=== PATIENT | female | born 1965 | race Caucasian/White ===

== ENCOUNTER 2017-04-27 08:04 | Outpatient (CLI) | payer BC ==
[2017-04-27] MEDS ORDERED: Iopamidol 370 76% 100 ML VIAL ONE (11:55)
== END 2017-04-27 08:05 | disposition home or self-care (01) ==
LOC: BICCT 08:04
PROVIDERS: ATTEND Internal Medicine Gastroenterology
DX: R63.4 Abnormal weight loss (principal); K52.9 Noninfective gastroenteritis and colitis, unspecified; R10.13 Epigastric pain; Z90.49 Acquired absence of other specified parts of digestive tract; Z90.710 Acquired absence of both cervix and uterus; Z93.6 Other artificial openings of urinary tract status
CPT/HCPCS: 71046; 74177

== ENCOUNTER 2017-05-21 20:50 | Emergency (ER) | payer BC, SELFPAY ==
[2017-05-21 21:23] LABS: #Basophils 0.1 thou/uL (0.0-0.2); #Lymphocytes 3.2 thou/uL (1.20-3.40); #Monocytes 0.6 thou/uL (0.11-0.59); #Neutrophils 7.7 thou/uL (1.40-6.50); %Basophils 0.6 % (0.0-1.0); %Eosinophils 0.3 % (0.0-10.0); %Lymphocytes 27.3 % (21.0-51.0); %Monocytes 5.3 % (0.0-10.0); %Neutrophils 66.4 % (42.0-75.0); Mean Corpuscular Hemoglobin 29.5 pg (27.0-31.0); Mean Corpuscular Volume 89.5 fl (81.0-99.0); Mean Platelet Volume 7.2 fL (7.4-10.4); Platelet Count 393 thou/uL (130-400); RBC Distribution Width 11.9 % (11.5-14.5); Red Blood Cell (RBC) Count 4.75 mill/uL (4.20-5.40); White Blood Cell (WBC) Count 11.6 thou/uL (4.8-10.8)
--- NOTE | 2017-05-21 21:39 | RAD ---
SINGLE VIEW OF THE CHEST: Comparison: 07-27-13 History: Abdominal pain since 6:00 this morning. History of abdominal obstructions. Difficult bowel m ovement this morning. FINDINGS: Single view of the chest shows a normal sized cardiomediastinal silhouette. There is no evidence of c onsolidation, mass, or pleural effusion. The bones are unremarkable. IMPRESSION: No evidence of acute cardiopulmonary disease. POS: [facility]
[2017-05-21 21:43] LABS: ALT (SGPT) 16 U/L (8-55); AST (SGOT) 19 U/L (5-34); Albumin 4.7 g/dL (3.5-5.0); Alkaline Phosphatase 68 U/L (40-150); Anion Gap 17 mmol/L (10-20); BUN (Urea Nitrogen) 17 mg/dL (9.8-20.1); Bilirubin, Total 0.6 mg/dL (0.2-1.2); Calc. Creatinine Clearance 0 mL/min (70-130); Calcium 10.7 mg/dL (7.8-10.44); Carbon Dioxide 21 mmol/L (22-29); Chloride 104 mmol/L (98-107); Estimated GFR-MDRD 45; Globulin 3.9 g/dL (2.4-3.5); Glucose 85 mg/dL (70-105); Potassium 3.9 mmol/L (3.5-5.1); Protein, Total 8.6 g/dL (6.0-8.3); Sodium 138 mmol/L (136-145)
[2017-05-21] MEDS ORDERED: Fentanyl 100 MCG/2 ML VIAL ONE ×2 (21:47→23:42)
[2017-05-21] MEDS ORDERED: Ondansetron HCl/PF 4 MG/2 ML Vial ONE (21:47)
--- NOTE | 2017-05-21 22:11 | CT ---
CT OF THE ABDOMEN AND PELVIS WITHOUT CONTRAST: Comparison: 01-28-16 History: Abdominal pain since 6:00 this morning. History of bowel obstruction. Technique: Multiple contiguous axial images were obtained in a CT of the abdomen and pelvis without c ontrast. Coronal reformats were performed. FINDINGS: The patient is status post cholecystectomy. There is an ostomy in the right lower quadrant of the abd omen. There are multiple anastomotic benjamin lines within the bowel. The large and small bowel are no rmal in caliber without evidence of obstruction. The patient is status post hysterectomy. The liver, kidneys, adrenal glands, spleen, and pancreas are unremarkable although evaluation is limited without IV contrast. No free air, free fluid, or strandi ng changes are seen in the abdomen or pelvis. Atherosclerotic calcifications are seen in the aorta. N o abdominal or pelvic lymphadenopathy are seen. Degenerative changes are seen in the spine. Visualized inferior thorax is unremarkable. IMPRESSION: No evidence of acute intraabdominal/pelvic abnormality. POS: [facility]
--- NOTE | 2017-06-24 15:03 | EKG ---
Test Reason : Blood Pressure : / mmHG Vent. Rate : 045 BPM Atrial Rate : 045 BPM P-R Int : 116 ms QRS Dur : 090 ms QT Int : 508 ms P-R-T Axes : 071 059 050 degrees QTc Int : 439 ms Sinus bradycardia Abnormal ECG Confirmed by ALYSSIA CARTER ([id number]), publications editor ANDERSON FRANCO ([id number]) on 06/24/2017 3:02:26 PM Referred By: EMMA Confirmed By:ALYSSIA CARTER
== END 2017-05-22 00:10 | disposition home or self-care (01) ==
LOC: ERS 20:50
DX: R10.9 Unspecified abdominal pain (principal); E03.9 Hypothyroidism, unspecified; F32.9 Major depressive disorder, single episode, unspecified; Z85.41 Personal history of malignant neoplasm of cervix uteri; Z86.73 Personal history of transient ischemic attack (TIA), and cerebral infarction without residual deficits; Z87.891 Personal history of nicotine dependence
CPT/HCPCS: 71045; 74176; 80053; 83605; 85025; 93005; 96361; 96374; 96375; 96376; J2405; J3010

== ENCOUNTER 2017-05-23 09:03 | Inpatient (IN) | payer BC, SELFPAY ==
[2017-05-23] MEDS ORDERED: Ondansetron HCl/PF 4 MG/2 ML Vial ONE (10:52)
[2017-05-23 11:00] LABS: #Basophils 0.1 thou/uL (0.0-0.2); #Lymphocytes 2.1 thou/uL (1.20-3.40); #Neutrophils 9.9 thou/uL (1.40-6.50); %Basophils 0.4 % (0.0-1.0); %Eosinophils 0.3 % (0.0-10.0); %Lymphocytes 16.1 % (21.0-51.0); %Monocytes 7.8 % (0.0-10.0); %Neutrophils 75.3 % (42.0-75.0); Hemoglobin 16.2 g/dL (12.0-16.0); Mean Corpuscular HGB CONC 32.7 g/dL (32.0-36.0); Mean Corpuscular Hemoglobin 29.4 pg (27.0-31.0); Mean Corpuscular Volume 89.8 fl (81.0-99.0); Mean Platelet Volume 7.1 fL (7.4-10.4); Platelet Count 367 thou/uL (130-400); RBC Distribution Width 11.7 % (11.5-14.5); Red Blood Cell (RBC) Count 5.51 mill/uL (4.20-5.40); White Blood Cell (WBC) Count 13.1 thou/uL (4.8-10.8)
[2017-05-23] MEDS ORDERED: Furosemide 40 MG/4 ML VIAL ONE (11:11)
[2017-05-23 11:17] LABS: ALT (SGPT) 13 U/L (8-55); AST (SGOT) 18 U/L (5-34); Albumin 4.3 g/dL (3.5-5.0); Alkaline Phosphatase 73 U/L (40-150); Anion Gap 18 mmol/L (10-20); BUN (Urea Nitrogen) 14 mg/dL (9.8-20.1); Bilirubin, Total 1.3 mg/dL (0.2-1.2); Calc. Creatinine Clearance 0 mL/min (70-130); Calcium 10.3 mg/dL (7.8-10.44); Carbon Dioxide 19 mmol/L (22-29); Chloride 106 mmol/L (98-107); Estimated GFR-MDRD 46; Globulin 3.7 g/dL (2.4-3.5); Glucose 84 mg/dL (70-105); Lipase 23 U/L (8-78); Potassium 3.8 mmol/L (3.5-5.1); Sodium 139 mmol/L (136-145)
[2017-05-23 11:34] LABS: Bilirubin Small (Negative); Blood, Urine Negative (Negative); Clarity CLOUDY (Clear); Glucose, Urine (Dipstick) Negative (Negative); Leukocyte Moderate (Negative); Nitrite Negative (Negative); Protein, Urine (Dipstick) 30 mg/dL (Neg-Trace); Specific Gravity, Urine 1.014 (1.002-1.036); Urobilinogen 0.2 mg/dL (0.2-1.0); pH, Urine 7.5 (5.0-9.0)
--- NOTE | 2017-05-23 11:46 | CT ---
ABDOMEN AND PELVIS CT SCAN WITH IV CONTRAST: HISTORY: A 51-year-old female with abdominal pain. COMPARISON: 05/21/2017 FINDINGS: The lung bases are clear. Status post cholecystectomy. The visualized liver, pancreas, spleen, and adrenal glands are unremarkable. There is a right anterior ureteroileostomy. Moderate hydronephrosi s of the right kidney has developed since the prior study. No evidence for left renal hydronephrosis . There are very numerous small bowel benjamin and sutures. Previous right hemicolectomy with ileal transverse colon anastomotic. Abnormally dilated small bowel loops with some bowel wall thickening a nd what is probably some degree of enhancement, nonspecific, but raising concern for the possibility of nonspecific ileitis. The remaining colon appears unremarkable. Status post hysterectomy. No richa dence for abscess. Possible very small amount of free fluid adjacent to the right lobe of the liver. IMPRESSION: 1. Interval development of fairly marked dilatation of almost the entire small bowel, since the prio r study of 05/21/2017, with some small bowel wall thickening and what appears to be some heterogeneou s small bowel enhancement, nonspecific, but certainly raising concern for diffuse nonspecific enterit is. 2. Interval development of right-sided moderate hydronephrosis since the prior study, in association with a right-sided ureteroileostomy. 3. Status post right hemicolectomy with what appears to be an ileal transverse colon anastomosis. 4. No significant colonic dilatation, although there are some air-fluid levels within the transverse and left colon. 5. No evidence for abscess. 6. No evidence for a focal high grade small bowel obstruction. POS: [facility]
[2017-05-23 11:48] LABS: Bacteria/HPF 4+ HPF (None Seen); Squamous Epithelial 0-3 HPF (0-3)
[2017-05-23 11:50] LABS: Hyaline Casts/LPF >50 HYALINE CAST LPF (0-3 Hyaline); Pathc Cast-AUWi Flag 13.68 (0-2.49)
[2017-05-23 11:58] LABS: Manual Microscopic Reviewed? No Path Casts Seen; RBC/HPF 0-3 HPF (0-3)
[2017-05-23] MEDS ORDERED: Cefepime 2 GM, Syringe 2.5 ML in Sterile Water 10 ML SLOW IVP SCH (13:00)
[2017-05-23 13:37] LABS: PTT 24.7 SEC (22.9-36.1)
[2017-05-23 13:38] LABS: INR-International Normal Ratio 1.7; Prothrombin Time 20.2 SEC (12.0-14.7)
[2017-05-23] MEDS ORDERED: ISOVUE-370 76%-LOCM 1 ML ONE (14:27)
[2017-05-23] MEDS ORDERED: Ondansetron HCl/PF 4 MG/2 ML Vial IVP PRN (14:49)
[2017-05-23] MEDS ORDERED: Ondansetron ODT 4 MG TAB SL PRN (14:49)
[2017-05-23] MEDS ORDERED: Acetaminophen 325 MG TAB PO PRN ×2 (14:49→15:00)
[2017-05-23] MEDS ORDERED: Sodium Chloride 0.9% 1,000 ML IV SCH (14:49)
--- NOTE | 2017-05-23 15:01 | PDOC.EVN ---
Event Note - Event Note Event Note: [id number] Abdominal pain, nausea and vomiting Hypothyroidism Enteritis Hypothyroidism plan: see orders
[2017-05-23] MEDS ORDERED: HYDROcodone/Acetaminophen 5/325 mg Tablet PO PRN (15:02)
[2017-05-23] MEDS ORDERED: Warfarin Sodium 10 MG TAB PO SCH (15:15)
[2017-05-23] MEDS: Sodium Chloride 0.9% 1,000 ML IV SCH (15:46)
[2017-05-23 18:11] VITALS: BMI 24.1
[2017-05-23] MEDS: Citalopram 20 MG TAB PO SCH (19:57)
[2017-05-23] MEDS: Famotidine/PF 20 mg/2ml Vial SLOW IVP SCH (19:58)
--- NOTE | 2017-05-23 20:36 | RAD ---
SUPINE ABDOMEN: 05/23/17 HISTORY: Assess NG tube placement. FINDINGS/IMPRESSION: NG tube tip distally on the EG junction overlying the upper gastric fundal region in the left upper q uadrant. Bowel gas pattern is nonspecific with scattered small and large bowel gas noted. Post cholecystectomy clips are noted. There are also clips overlying the pelvis. POS: [facility]
[2017-05-23] MEDS ORDERED: FLU VACC QS2017-18 36 mo. & older 0.5 ML SYRINGE IM ONE (21:00)
--- NOTE | 2017-05-23 22:15 | RAD ---
SUPINE ABDOMEN: 05/23/17 HISTORY: Assess NG tube. FINDINGS/IMPRESSION: NG tube passes through the EG junction with the tip coiled in the upper gastric fundal region. There are gas filled dilated loops of small bowel. There is opacification of a dilated right collecting system. This right hydronephrosis was described on CT performed earlier today. Small bowel dilatation was also described on that study. POS: [facility]
[2017-05-23] MEDS: Cefepime 2 GM, Syringe 2.5 ML in Sterile Water 10 ML SLOW IVP SCH (22:28)
--- NOTE | 2017-05-23 22:28 | RAD ---
SUPINE ABDOMEN: 05/23/17 HISTORY: Assess NG tube placement. FINDINGS/IMPRESSION: NG tube has been advanced. The tip now overlies region of the gastric antrum. Gas filled dilated loops of small bowel again noted. Right hydronephrosis again noted with contrast i n the right collecting structures. No interval change from the earlier film. POS: [facility]
[2017-05-23] MEDS: metroNIDAZOLE 500 MG in Premix Bag 1 BAG IVPB SCH (22:29)
--- NOTE | 2017-05-23 23:00 | CON ---
DATE OF CONSULTATION: 05/23/2017 REASON FOR CONSULTATION: Abdominal pain, nausea and vomiting, and abnormal GI imaging. CONSULTING PHYSICIAN: Dr. Samir Castillo. HISTORY OF PRESENT ILLNESS: The patient is a 51-year-old female with past medical history of cervica l cancer, status post surgical resection and extensive radiation resulting in abdominal adhesions, wh ich then led to colonic resection with bowel obstruction with anastomotic leak and fistula formation that resulted in a right hemicolectomy. There are multiple bowel resections, recurrent thrombosis an d pulmonary embolus, on chronic anticoagulation, CVA, urosepsis, recurrent Clostridium difficile and salmonella infection, and bladder reconstruction with ileal conduit presenting with complaints of izabella sea, vomiting, and abdominal pain. She states that for the last few months she has been having recur rent left lower quadrant abdominal pain characterized as sharp/stabbing in nature, severity of 7-10/1 0, nonradiating, but worse with movement, better with inactivity. More recently, she said that she h ad acute worsening of this abdominal pain when she ate an dish that she was unfamiliar with wo rsening of her abdominal pain within 30 minutes after ingestion. She also endorses a diarrhea episod e x1 yesterday that was nonbloody, for which she took Imodium and has not had a subsequent bowel move ment since. She also has been taking fiber gummies in an attempt to help control this abdominal pain that has been controlled on either VSL #3 or Align probiotics in the past in addition to other treat ment modalities. Upon questioning the patient, she states that the pain is very similar to when she has had bowel obstruction in the past that has required NG tube placement for decompression as well a s small bowel follow-through for determination of etiology. In any case, worsening of the above symp toms prompted for admission to [facility] for evaluation. Upon evaluation in the ER, she had a CT scan of her abdomen, which showed significant dilation of the small bowel of up to 3-3.5 cm per my r ead. Currently she does endorse mild nausea, but no episodes of emesis since admission. She denies any further episodes of diarrhea since taking the Imodium yesterday, but she continues to have the a bdominal pain, which is unchanged in location, but has increased in severity like I said above within the last few days. Currently, denies any fevers, chills, melena, hematochezia, odynophagia, or dysp hagia. REVIEW OF SYSTEMS: A 10-category review of systems was obtained with all responses negative except f or the pertinent positives as listed in the HPI. PAST MEDICAL HISTORY: As per HPI. PAST SURGICAL HISTORY: Right hemicolectomy with revision due to anastomotic leak and fistula formati on, ileal conduit surgery, high-grade bowel obstruction, status post adhesiolysis, ureteral stent artemio cement. Ileal conduit surgery. FAMILY HISTORY: Denies any GI malignancies. SOCIAL HISTORY: Denies any tobacco, alcohol, or illicit drug use. OUTPATIENT MEDICATIONS: Reviewed. ALLERGIES: LEVAQUIN and MORPHINE. PHYSICAL EXAMINATION: VITAL SIGNS: Temperature of 98.9, pulse 62, blood pressure 131/76, respiratory rate 16, satting 97% on room air. GENERAL: The patient is lying in bed comfortably, in no acute distress, alert and oriented x4. NECK: Supple. No JVD noted. CARDIOVASCULAR: Regular rate and rhythm with no discernible murmurs, gallops, or rubs. RESPIRATORY: Clear to auscultation bilaterally with no discernible wheezes or rales. ABDOMEN: Hypoactive bowel sounds with possible high-pitched character at the area of the umbilicus. Nondistended. Tenderness to palpation in the right upper quadrant and right lower quadrant. No jeff ound or guarding noted. EXTREMITIES: No cyanosis, clubbing, or edema. LABORATORY DATA: CBC with a white blood cell count of 13.1, hemoglobin 16.2, hematocrit 49.4, platel ets 367. Chemistry with a sodium of 139, potassium 3.8, chloride 106, CO2 of 19, BUN 14, creatinine 1.23, glucose 84, AST 18, ALT 13, alkaline phosphatase 73, total bilirubin 1.3, albumin 4.3, lipase 2 3. INR 1.7. IMAGING STUDIES: CT abdomen and pelvis obtained on 05/23/2017 showing interval development of fairly marked dilatation of almost the entire small bowel compared to CT obtained on 05/21/2017 with some s mall bowel wall thickening and what appears to be some heterogenous small bowel enhancement. Also no otf was interval development of a right-sided moderate hydronephrosis in association with a right-farhana ed ureteral ileostomy. The patient also is status post right hemicolectomy with what appears to be a n ileal transverse colonic anastomosis and no significant colonic dilatation noted. No evidence of a bscess or fluid collection was noted as well as no evidence for focal high-grade small-bowel obstruct ion. ASSESSMENT AND PLAN: The patient is a 51-year-old female with past medical history of cervical cance r with multiple complications resulting in right hemicolectomy and ileal conduit surgery, chronic joy p vein thrombosis and pulmonary embolism, cerebrovascular accident, urosepsis and recurrent Clostridi um difficile and salmonella infections, presenting with increased abdominal pain and abnormal GI imag ing. Possible small-bowel obstruction. The patient presenting with increased left lower quadrant abdomina l pain that was associated with nausea, vomiting, and 1 episode of diarrhea, which prompted admission to [facility]. Upon admission to the ER, she had imaging with a CT abdomen and pelvis showing ma rked dilation of the small bowel when compared to imaging 2 days ago that did not show this particula r change. At this point, her physical exam and imaging findings are consistent with a possible small -bowel obstruction, but with no known transition point seen at this time. She was also noted to have moderate right hydronephrosis, which could be generating a white blood cell count and small bowel il eus as a result of this infection. Given her history of urosepsis in the past, this would definitely need to be addressed. However, with her possible partial small-bowel obstruction, I would recommend more conservative measures at this time including NG tube placement for decompression of the upper G I tract, which should help with abdominal pain as well as small bowel follow-through for further deli neation of the anatomy for possible transition point. RECOMMENDATIONS: 1. We would place the patient n.p.o. with NG tube placement for possible small-bowel obstruction. 2. After upper GI tract is decompressed, we would consider small bowel follow-through for evaluation or dilatation of anatomy for obstruction. 3. We would consult General Surgery service for evaluation of the patient in light of possible parti al small-bowel obstruction. 4. We would minimize any narcotic medicines, as this could potentially contribute to small bowel ile us. 5. We would obtain infectious stool studies given her recent history of diarrhea and history of recu rrent Clostridium difficile and salmonella infections. 6. We would continue treatment for urinary tract infection as you are doing.
--- NOTE | 2017-05-23 23:29 | HP ---
CHIEF COMPLAINT: Abdominal pain, nausea, and vomiting. HISTORY OF PRESENT ILLNESS: The patient is a 51-year-old female with past medical history of cervica l CA for which she had multiple abdominal surgeries and also urostomy done, last chemo and radiation treatment was in 2005, now came to the hospital with abdominal pain. The abdominal pain started all of sudden 1 week back associated with numerous episodes of nausea and vomiting. Pain is all over the abdomen, constant. No aggravating factors. No relieving factors. Currently no pain. Complains of some loose stools also. Denies any diarrhea at this time. Denies any fever, denies any chills, den ies any blood in the vomit. Denies any chest pain, denies any trouble breathing. PAST MEDICAL HISTORY: CVA, PE, cervical vein thrombosis, hypothyroidism. PAST SURGICAL HISTORY: Multiple abdominal surgeries. SOCIAL HISTORY: Denies smoking, denies alcohol, denies any drugs. MEDICATIONS: Reviewed. ALLERGIES: LEVOFLOXACIN, MORPHINE. REVIEW OF SYSTEMS: Constitutional: Denies any fever, denies any chills. Eyes: Denies any vision p roblems. Ears: Denies any hearing loss. Neck: Denies any neck pain. Cardiovascular System: Anurag es any chest pain. Denies any palpitations. Respiratory System: Denies any cough, denies sputum pr oduction. Gastrointestinal: Positive for nausea, vomiting. Positive for abdominal pain. Genitouri nary: No dysuria. Positive for urostomy. Musculoskeletal: Denies any joint deformities. Integume nt: Denies any rash. Psychiatric: Denies anxiety. All other review of systems are reviewed and ar e negative. PHYSICAL EXAMINATION: VITAL SIGNS: At the time of H&P performed, blood pressure is 121/65, pulse ox 97%, heart rate 70, re spiration rate 18. GENERAL: The patient appears comfortable. HEENT: Pupils are equal, round, and reactive. Anterior nares patent. Nose normal. Ears normal. T eeth intact. Tongue is moist. NECK: Supple, no JVD. CARDIOVASCULAR SYSTEM: S1 and S2 present. Regular rate and rhythm. No murmurs, no rubs, no gallops . RESPIRATORY SYSTEM: No wheezing, no rhonchi. Breath sounds present bilaterally. GASTROINTESTINAL: Abdomen is soft, mildly nontender to palpate. Positive for urostomy. No guarding , no rebound tenderness. Old healed scar present. MUSCULOSKELETAL: No edema. CRANIAL NERVE SYSTEM: Cranial nerves intact. Follows commands. Strength intact, sensory intact. PSYCHIATRIC: Mood appropriate at this time. INTEGUMENT: No rashes seen. LABORATORY DATA: At the time of H&P performed: INR 1.7. White count 13.1, hemoglobin 16.2, platele t count is 367. BMP shows sodium 139, potassium 3.8, chloride 106, CO2 of 19, BUN 14, creatinine 1.2 3. IMAGING: CT abdomen and pelvis positive for marked dilatation of entire small bowel. There is some bowel wall thickening, nonspecific enteritis, moderate hydronephrosis in association with right-sided ureteroileostomy, right hemicolectomy. ASSESSMENT AND PLAN: The patient is a 51-year-old female: 1. Abdominal pain, nausea, and vomiting plus enteritis. Plan to consult GI to evaluate the patient. Plan to keep the patient on clear liquid diet. We will start the patient on broad spectrum antibio tics. 2. Right-sided hydronephrosis with history of nephrostomy. Plan to consult Urology to evaluate the patient. We will monitor patient closely. 3. Abdominal pain, nausea, and vomiting; p.r.n. pain meds and antiemetics. 4. History of pulmonary embolism and cerebral vein thrombosis. Continue p.o. Coumadin. Monitor INR closely. 5. History of hypothyroidism. Continue Synthroid. Case was discussed in detail with the patient. The patient is FULL CODE.
[2017-05-24] MEDS: metroNIDAZOLE 500 MG in Premix Bag 1 BAG IVPB SCH ×3 (05:08→21:15)
[2017-05-24] MEDS: Sodium Chloride 0.9% 1,000 ML IV SCH ×2 (05:09→19:29)
[2017-05-24] MEDS: Levothyroxine Sodium 112 MCG TAB PO SCH (05:10)
[2017-05-24] MEDS: Cefepime 2 GM, Syringe 2.5 ML in Sterile Water 10 ML SLOW IVP SCH ×3 (05:10→21:10)
[2017-05-24 05:25] LABS: #Basophils 0.1 thou/uL (0.0-0.2); #Eosinphils 0.2 thou/uL (0.0-0.7); #Lymphocytes 2.1 thou/uL (1.20-3.40); #Monocytes 0.8 thou/uL (0.11-0.59); #Neutrophils 6.1 thou/uL (1.40-6.50); %Basophils 0.6 % (0.0-1.0); %Eosinophils 1.6 % (0.0-10.0); %Lymphocytes 22.7 % (21.0-51.0); %Monocytes 9.1 % (0.0-10.0); %Neutrophils 65.9 % (42.0-75.0); Hemoglobin 13.2 g/dL (12.0-16.0); Mean Corpuscular HGB CONC 32.9 g/dL (32.0-36.0); Mean Platelet Volume 7.3 fL (7.4-10.4); Platelet Count 288 thou/uL (130-400); RBC Distribution Width 11.8 % (11.5-14.5); Red Blood Cell (RBC) Count 4.42 mill/uL (4.20-5.40); White Blood Cell (WBC) Count 9.2 thou/uL (4.8-10.8)
[2017-05-24 05:45] LABS: Anion Gap 7 mmol/L (10-20); BUN (Urea Nitrogen) 11 mg/dL (9.8-20.1); Calc. Creatinine Clearance 63 mL/min (70-130); Calcium 8.7 mg/dL (7.8-10.44); Carbon Dioxide 27 mmol/L (22-29); Chloride 110 mmol/L (98-107); Estimated GFR-MDRD 53; Glucose 92 mg/dL (70-105); Potassium 4.3 mmol/L (3.5-5.1); Sodium 140 mmol/L (136-145)
--- NOTE | 2017-05-24 06:34 | CON ---
DATE OF CONSULT: 05/23/2017 HISTORY OF PRESENT ILLNESS: This is a 51-year-old white female that I was asked to see by the [facility] because of the concern for right hydronephrosis. She is a patient of Dr. Mcdaniel. Dr. Mcdaniel was tied up in the OR today and could not see her. She has an interesting history i n that she was treated for cervical cancer with radiation therapy at [facility], I believe in 2005. She ap parently has been NAD of that disease, but unfortunately, she developed significant radiation injury to her bladder and her distal ureters, Dr. Mcdaniel had cared for and was treating with her stents ; however, this did not relieve her problems and she was referred to [facility] with greg Freitas a diverting colon conduit, which comes out on her right lower quadrant. This was done 5 years ago and she has actually done very well since that time. She reports no history of infections, stones, o r renal insufficiency. She generally has had good urine output through the conduit. She does see Dr Amanda Simpson usually each year and does see Dr. Mcdaniel each year, although last year because of a c hange in insurance, she saw neither of them, but was hoping to get back in again. Her most recent ad mission and reason for admission was abdominal pain and this started 2-3 days ago with left-sided abd ominal pain and was bad enough that she came to the ER 2 days ago, had a CAT scan done that showed a tiny stone in her right kidney and notes significant problems with her kidneys and bowel. She was se nt home. The pain did not get any better, get a bit worse. Last night, she started throwing up with it. She has had watery bowel movements today, no blood, and she has not had any fevers or chills at home, but has left-sided abdominal pain and then some vomiting last night. She was admitted today, her urine was taken directly from her conduit, which as expected, showed many white cell, skin cells, and bacteria. She had a creatinine done that was 1.23 and she is mildly acidotic with a CO2 of 19. Her white count was elevated at 13.1, her hemoglobin was 16.2, her platelet count was normal. She h ad a CAT scan done, which I have reviewed. She had a CAT scan done on both the 4th and again today o n the 6th and I have reviewed both of those. She has some mild right hydro. It is slightly worse th an it was 2 days ago. He can follow the right ureter down to the colon conduit and it does not appea r to be obstructed. She has a fairly prompt uptake of contrast in that kidney when the IV contrast w as given. She has had a fairly markedly development of dilatation of the entire small bowel in the l ast 2 days with bowel wall thickening and possibility of enteritis, probably more so than a bowel obs truction. She has had prior intestinal surgery and she has areas of bowel anastomosis which can be p icked out. Her vital signs currently are stable. PAST MEDICAL AND SURGICAL HISTORY: Includes cervical cancer, history of bowel obstruction, history o f surgery for the noncompliant bladder and ureteral strictures. She has a history of gout, hypothyro idism, history of CVA, history of cardiomyopathy, depression, hypertension, and hyperlipidemia. She has had a cholecystectomy. She has had procedures for lysis of adhesions. She has had a right hemic olectomy. PHYSICAL EXAMINATION: She has no CVA tenderness. She has no right-sided abdominal tenderness. She has left-sided abdominal tenderness without any rebound or guarding. Her stoma is pink and healthy. ALLERGIES: She has allergies to LEVAQUIN and MORPHINE. IMPRESSION: Mild right hydro which I do not think is of any concern, I think this is probably normal for her and somebody with a colon conduit. She has a tiny stone in the right kidney that was seen 2 days ago and is still seen today. She has nothing to suggest a stone in the ureter. She has no fla nk tenderness. She has nothing to make me think she has pyelonephritis. Her urinalysis was taken fr om her conduit and will be abnormal because of that and I would tell you that anything that grows out of that, I would not recommend treating. She has already had problems with C. diff in the past and treating when she does not have an infection related to the urinary tract, make no sense. Should her blood cultures grow anything out, then that would a reason to treat based on those, but I would not treat her abnormal urine culture with IV antibiotics. I will let Dr. Mcdaniel know, but I do not think she has a urinary tract obstruction.
[2017-05-24] MEDS: Famotidine/PF 20 mg/2ml Vial SLOW IVP SCH ×2 (08:12→21:10)
[2017-05-24] MEDS ORDERED: Furosemide 20 MG TAB PO PRN (10:05)
--- NOTE | 2017-05-24 10:09 | PDOC.PN ---
- Subjective Encounter Start Date: 05/24/17 Encounter Start Time: 09:00 Subjective: Abdominal pain much improved. No more nausea or vomiting. A few liquid BM -: overnight. - Objective MAR Reviewed: Yes Vital Signs & Weight: Vital Signs (12 hours) Temp Pulse Resp BP Pulse Ox 05/24/17 08:19 97.7 F 66 16 119/76 98 05/24/17 08:00 97.7 F 66 16 98 05/24/17 05:17 98 F 66 16 123/72 97 I&O: 05/23/17 05/24/17 05/25/17 06:59 06:59 06:59 Intake Total 240 1400 Output Total 100 Balance 240 1300 Result Diagrams: 05/24/17 04:19 05/24/17 04:19 Phys Exam - Physical Examination Constitutional: NAD HEENT: moist MMs Respiratory: no wheezing, no rales, no rhonchi Cardiovascular: RRR, no significant murmur Gastrointestinal: soft, positive bowel sounds mild TTP left abdomen, right abdomen with urostomy in place Neurological: non-focal, moves all 4 limbs Psychiatric: normal affect, A&O x 3 Dx/Plan (1) Gastroenteritis Code(s): K52.9 - NONINFECTIVE GASTROENTERITIS AND COLITIS, UNSPECIFIED Status : Acute (2) Ileus Code(s): K56.7 - ILEUS, UNSPECIFIED Status: Acute Comment: Improving, surgical consultation held for now, GI following (3) Hydronephrosis Code(s): N13.30 - UNSPECIFIED HYDRONEPHROSIS Status: Chronic Comment: related to ileal conduit and urostomy, no acute infection/obstruction per Urology (4) Chronic anticoagulation Code(s): Z79.01 - HALF-WAY (CURRENT) USE OF ANTICOAGULANTS Status: Chronic Comment: For previous PE and vein thrombosis, monitor INR - Plan cont current plan of care, continue antibiotics, out of bed/ambulate * . - Discharge Day Encounter end time: 09:30
[2017-05-24] MEDS ORDERED: Warfarin Sodium 7.5 MG TAB PO SCH (10:15)
[2017-05-24] MEDS ORDERED: Warfarin Sodium 5 MG TAB PO SCH ×2 (10:15→17:00)
--- NOTE | 2017-05-24 15:12 | PRG ---
DATE OF SERVICE: 05/24/2017 SUBJECTIVE: Ms. Hernadez had a few watery bowel movements last night. Today, her pain is completely r esolved. She has no nausea and her tenderness has improved. She had a couple of small bowel movemen ts today, which were a little less liquidy. OBJECTIVE: VITAL SIGNS: Temperature 97.7, pulse 66, blood pressure 119/76. GENERAL: She is in no acute distress. She is alert and oriented x3. LUNGS: Clear to auscultation bilaterally. HEART: Regular rate and rhythm without murmur. ABDOMEN: Soft. Mild tenderness in the left lower abdomen. Bowel sounds are active. EXTREMITIES: No lower extremity edema. LABORATORY DATA: Her white blood cell count is down from 13.1 to 9.2; hemoglobin is 13.2, down from 16 after rehydration; platelets 288. INR yesterday was 1.7, on anticoagulation. Creatinine today is 1.09. IMPRESSION: Recurrent small-bowel obstruction related to passed radiation and multiple surgeries. T his appears to be resolved now and she is completely pain-free. She is having minimal output from he r NG tube and she is passing bowel movements. I am unsure that the antibiotics had anything to do wi th her improvement. Her white blood cell count has decreased. Given her history of Clostridium diff icile, I am concerned about the use of antibiotics. However, given her rapid improvement while on th em, we should likely finish out a 5 to 7 day course of Cipro and metronidazole. RECOMMENDATIONS: 1. We will start clear liquid diet. If she starts feeling full or uncomfortable, then we will stop and we can do a Gastrografin small bowel follow-through instead. If she tolerates clear liquids, the n tomorrow we can advance to full liquids and then to a low residue diet as tolerated. 2. She is on anticoagulation with warfarin. Again, we will need to closely follow her INR as she is on antibiotics and her oral intake is obviously altered with a small-bowel obstruction.
[2017-05-24] MEDS: Loperamide HCl 2 MG CAP PO SCH (18:09)
--- NOTE | 2017-05-24 21:03 | CON ---
DATE OF CONSULTATION: 05/24/2017 PRIMARY CARE PHYSICIAN: Dr. Talon Castillo. REASON FOR CONSULT: Right hydronephrosis. HISTORY OF PRESENT ILLNESS: Isidra is a 51-year-old female well known to me. Patient previously was under name Isidra Mendoza, she recently , her name has changed since July. She has a history of cervical cancer, status post hysterectomy, chemotherapy, status post RT with multiple bowel resections. She has had a complicated history with anastomotic leak of an intraabdominal abscess. She subsequently developed high-grade right ureteral stricture, failed ureteral stent placement. She was subsequently referred to [facility] , underwent colon conduit due to chronic right hydronephrosis. This was performed in 04/2013. This was a very involved surgery with surgery over 8 hours, as she had extensive lysis of adhesions and hernia repair. I last saw Isidra 05/2015, in which she has continued followup with Dr. Simpson was seeing me p.r.n. once a year. She has had multiple right ureteral stents, due to failed ureteral stent and underwent above surgery for urinary diversion. She is currently admitted due to small-bowel obstruction, she has had bouts of history of C. diff in the past. She is afebrile and currently doing well/stable , as she is being monitored for small-bowel obstruction followed by GI. She states that she is established with Dr. Gagnon locally, as she does have history of renal insufficiency. She currently denies fever, abdominal pain. She has had history of vague right lower back discomfort not characterized pain, and this resolved on their own, as she is not significantly bothered by this. Her creatinine on admission is 1.2 and currently is 1.0. Her baseline creatinine is variable from 0.8 to 1.6. She has had multiple CTs on admission. Initially CT without contrast, which was read unremarkable for pathology. Two days later on 05/23/2017, she had a CT with IV contrast, this was read as right hydronephrosis. There has also been interval development of significant dilation of her entire small bowel compared to just 2 days prior with inflammatory small bowel component. She does have urinalysis obtained from conduit; however, I do expect this to be colonized. Full consult was performed by Dr. Kerns yesterday, as I was out of the office. PAST MEDICAL/SURGICAL HISTORY: 1. Her past medical history includes LEEP, total abdominal hysterectomy. She has had multiple cystoscopies, ureteral stent placement in the past, which has failed. 2. Urodynamics previously at [facility] demonstrated poorly compliant bladder. 3. In 04/2013, extensive lysis of adhesion, bilateral ureterolysis, transverse colon conduit, urinary diversion, and incisional hernia repair performed at [facility]. ALLERGIES: She is allergic to LEVAQUIN. PHYSICAL EXAMINATION: VITAL SIGNS: Currently vital signs are stable. She is afebrile. ABDOMEN: Soft, nondistended, incision is clean, dry, and intact. There is no gross flank tenderness on exam. EXTREMITIES: No cyanosis, clubbing, or edema. PERTINENT LABORATORY DATA: White count 9, hemoglobin 13, platelets 288. INR 1.7, PT 24. Baseline creatinine variable from 0.8 to 1.6, creatinine today is 1.0. Admitting creatinine is 1.2. She has C. diff antigen positive; however, toxin is negative. PERTINENT IMAGIN. CT without contrast dated 05/21/2017, unremarkable for pathology or abdominal pathology. Punctate right lower pole stone 2. On 05/23/2017, two days later with IV contrast demonstrates right hydronephrosis with significant marked dilation of small bowel. 3. Her previous imaging: Her last imaging of record with me as CT/IVP in 2013 demonstrates no hydronephrosis, status post colostomy. No evidence of hydronephrosis or ureteral stone. She does have chronic dilated morphology of the right kidney, draining into the conduit. 4. Lasix renal scan in 12/2013 locally left kidney function 49%, right kidney function 31%. 5. [facility] Lasix renal scan per report left kidney function 48%, right kidney percent 51% with mildly diminished function of both kidneys, slow persistent retention of the right collecting system. IMPRESSION/PLAN: 1. Ms. Hernadez is a 51-year-old female with history of cervical cancer, status post hysterectomy, chemoradiation therapy with multiple bowel resections, history of bowel anastomotic leak with intra-abdominal abscess with subsequent high-grade right ureteral stricture failed stent placement. 2. Status post colon conduit at [facility] with significant lysis of adhesions. 3. History of chronic right hydro with some decrease excretion of the kidney on observation. 4. History of Clostridium difficile. 5. 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 I reviewed her history, as well as her previous imaging results. Her morphology of the right kidney has not significantly changed over the last few years. She does have chronic dilated right kidney morphology. I do recommend, patient obtain a follow Lasix renal scan to assess function as well as degree of progressive obstructive component. She remains minimally symptomatic if at all. If there is mild delayed excretion, stable findings, options of surveillance discussed with patient. In the absence of high-grade obstruction, if fever from right pyelonephritis, emergent percutaneous nephrostomy would be advised.. Of note, there is significant inflammatory component from the enteritis, which can result in reactive edema near the ureteral colon anastomosis, which I reviewed myself. She did desire to proceed with Lasix renal scan for staging for further recommendations regarding observation versus percutaneous nephrostomy tube. We will follow with you on this admission. NANDA
[2017-05-24] MEDS: Citalopram 20 MG TAB PO SCH (21:10)
[2017-05-25 05:20] LABS: INR-International Normal Ratio 2.3; Prothrombin Time 26.6 SEC (12.0-14.7)
[2017-05-25] MEDS: Cefepime 2 GM, Syringe 2.5 ML in Sterile Water 10 ML SLOW IVP SCH ×3 (05:26→20:29)
[2017-05-25] MEDS: metroNIDAZOLE 500 MG in Premix Bag 1 BAG IVPB SCH ×2 (05:27→18:15)
[2017-05-25] MEDS: Sodium Chloride 0.9% 1,000 ML IV SCH ×2 (05:28→20:27)
[2017-05-25] MEDS: Levothyroxine Sodium 112 MCG TAB PO SCH (05:28)
[2017-05-25] MEDS: Famotidine/PF 20 mg/2ml Vial SLOW IVP SCH (08:17)
--- NOTE | 2017-05-25 08:17 | PRG ---
DATE OF SERVICE: 05/25/2017 SUBJECTIVE: The patient is without complaints, denies flank pain, nausea, vomiting, fever. PHYSICAL EXAMINATION: VITAL SIGNS: Stable. ABDOMEN: Soft. : Conduit is pink and viable with clear yellow urine. I did place a Steiner catheter without the balloon inflated into a stoma, exiting into her conduit bag. Unable to connect to gravity bag as there is no adaptor on floor. I asked the nursing staff to contact [facility] to connect her conduit bag to gravity leg bag for a Lasix renal scan scheduled for today. IMPRESSION/PLAN: Ms. Hernadez is a 51-year-old female with history of cervical cancer, status post hysterectomy, with history of intraabdominal abscess, bowel anastomotic leak, with high grade right distal ureteral stricture, failed ureteral stent. She has undergone colon conduit urinary diversion at [facility] by Dr. Simpson. The patient with history of chronic right hydronephrosis. Currently admitted for enteritis, small-bowel obstruction. Her renal function is stable. We will obtain staging Lasix renal scan. I discussed with patient regarding pending Lasix renal scan, options of clinical observation with serial renal scan versus percutaneous nephrostomy tube. Again , there is no need for urgent nephrostomy tube in the absence of pyelonephritis , fever which she does not present at this time. Further recommendations pending renal scan scheduled for today. Punctate right renal lithiasis does not warrant treatment MTDD
[2017-05-25] MEDS: Magnesium Oxide 250 MG TAB PO SCH (08:19)
[2017-05-25] MEDS: Lactinex Tablet PO SCH (08:19)
[2017-05-25] MEDS: Loperamide HCl 2 MG CAP PO SCH ×2 (08:19→18:17)
[2017-05-25] MEDS ORDERED: Warfarin Sodium 7.5 MG TAB PO SCH (08:30)
[2017-05-25] MEDS ORDERED: Non-Formulary Item 1 EACH (Cholecalciferol (Vitamin D3) [Vitamin D] 5,000 UNIT) PO SCH (09:00)
[2017-05-25] MEDS ORDERED: Spironolactone 25 MG TAB PO SCH (09:00)
--- NOTE | 2017-05-25 14:20 | PDOC.PN ---
- Subjective Encounter Start Date: 05/25/17 Encounter Start Time: 10:30 Patient is seen today, alert and oriented. She is waiting on renal scan today scheduled through [place]. No abdominal pain. No nausea. - Objective MAR Reviewed: Yes Vital Signs & Weight: Vital Signs (12 hours) Temp Pulse Resp BP Pulse Ox 05/25/17 11:00 97.4 F L 50 L 20 137/79 97 05/25/17 08:00 97.4 F L 50 L 20 125/72 97 Weight Admit Weight 145 lb 4.8 oz Weight 145 lb 4.8 oz I&O: 05/24/17 05/25/17 05/26/17 06:59 06:59 06:59 Intake Total 240 1400 Output Total 100 Balance 240 1300 Result Diagrams: 05/24/17 04:19 05/24/17 04:19 Radiology Reviewed by me: Yes Phys Exam - Physical Examination HEENT: PERRLA, moist MMs Neck: no nodes, no JVD Respiratory: no wheezing, no rales Cardiovascular: RRR, no significant murmur Gastrointestinal: soft, non-tender, no distention Musculoskeletal: no edema, pulses present Neurological: non-focal, normal sensation Psychiatric: normal affect, A&O x 3 Dx/Plan (1) Gastroenteritis Code(s): K52.9 - NONINFECTIVE GASTROENTERITIS AND COLITIS, UNSPECIFIED Status : Acute Comment: Likely from radiation induced, pt is on prophylactic Abx Cipro and Flagyl (2) Ileus Code(s): K56.7 - ILEUS, UNSPECIFIED Status: Acute Comment: Improving, surgical consultation held for now, GI following (3) Chronic anticoagulation Code(s): 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 (5) Cerebrovascular accident Code(s): I63.9 - CEREBRAL INFARCTION, UNSPECIFIED Status: Chronic (6) Pulmonary embolism Code(s): I26.99 - OTHER PULMONARY EMBOLISM WITHOUT ACUTE COR PULMONALE Status : Chronic Comment: stbale. off of Coumedin. - Plan cont current plan of care, continue antibiotics, PT/OT, respiratory therapy, incentive spirometry, DVT proph w/SCDs * . - Discharge Day Encounter end time: 11:00 Review of Systems - Review of Systems Constitutional: negative: fever, chills, sweats, weakness, malaise, other Eyes: negative: Pain, Vision Change, Conjunctivae Inflammation, Eyelid Inflammation, Redness, Other ENT: negative: Ear Pain, Ear Discharge, Nose Pain, Nose Discharge, Nose Congestion, Mouth Pain, Mouth Swelling, Throat Pain, Throat Swelling, Other Respiratory: negative: Cough, Dry, Shortness of Breath, Hemoptysis, SOB with Excertion, Pleuritic Pain, Sputum, Wheezing Cardiovascular: negative: chest pain, palpitations, orthopnea, paroxysmal nocturnal dyspnea, edema, light headedness, other Gastrointestinal: negative: Nausea, Vomiting, Abdominal Pain, Diarrhea, Constipation, Melena, Hematochezia, Other Musculoskeletal: negative: Neck Pain, Shoulder Pain, Arm Pain, Back Pain, Hand Pain, Leg Pain, Foot Pain, Other - Medications/Allergies Allergies/Adverse Reactions: Allergies Allergy/AdvReac Type Severity Reaction Status Date / Time levofloxacin [From Levaquin] Allergy red streak Verified 05/23/17 15:05 up arm of iv Medications: Current Medications Acetaminophen (Tylenol) 650 mg PO Q4H PRN PRN Reason: Headache/Fever or Pain Hydrocodone Bitart/Acetaminophen (Junior 5/325) 1 tab PO Q4H PRN PRN Reason: Moderate Pain (4-6) Last Admin: 05/23/17 15:56 Dose: 1 tab Acidophilus (Floranex) 1 tab PO DAILY [facility] Last Admin: 05/25/17 08:19 Dose: 1 tab Cholecalciferol (Vitamin D3) 5,000 units PO DAILY [facility] Last Admin: 05/25/17 08:19 Dose: 5,000 units Citalopram Hydrobromide (Celexa) 20 mg PO HS [facility] Last Admin: 05/24/17 21:10 Dose: 20 mg Famotidine (Pepcid) 20 mg SLOW IVP Q12HR [facility] Last Admin: 05/25/17 08:17 Dose: 20 mg Furosemide (Lasix) 20 mg PO DAILY PRN PRN Reason: Edema Hyoscyamine Sulfate (Levsin) 0.125 mg PO AC PRN PRN Reason: GI Cramping Cefepime HCl 2 gm/ Syringe 2.5 (ml/ Sterile Water) 12.5 mls @ 150 mls/hr SLOW IVP Q8HR [facility] Last Admin: 05/25/17 05:26 Dose: 12.5 mls Sodium Chloride (Normal Saline 0.9%) 1,000 mls @ 75 mls/hr IV .[id number] [facility] Last Admin: 05/25/17 05:28 Dose: 1,000 mls Ciprofloxacin/Dextrose 400 mg/ (Device) 200 mls @ 200 mls/hr IVPB Q12HR [facility] Last Admin: 05/25/17 08:12 Dose: 200 mls Metronidazole 500 mg/ Device 100 mls @ 100 mls/hr IVPB Q8HR [facility] Last Admin: 05/25/17 05:27 Dose: 100 mls Levothyroxine Sodium (Synthroid) 112 mcg PO 0600 [facility] Last Admin: 05/25/17 05:28 Dose: 112 mcg Loperamide HCl (Imodium) 2 mg PO BID-[facility] Last Admin: 05/25/17 08:19 Dose: 2 mg Magnesium Oxide (Magnesium Oxide) 500 mg PO DAILY [facility] Last Admin: 05/25/17 08:19 Dose: 500 mg Ondansetron HCl (Zofran) 4 mg IVP Q6H PRN PRN Reason: Nausea/Vomiting Stop: 05/28/17 00:45 Sodium Chloride (Flush - Normal Saline) 10 ml IVF Q12HR [facility] Last Admin: 05/25/17 08:20 Dose: Not Given Sodium Chloride (Flush - Normal Saline) 10 ml IVF PRN PRN PRN Reason: Saline Flush Spironolactone (Aldactone) 25 mg PO SuTuThSa@0900 [facility] Last Admin: 05/25/17 08:20 Dose: 25 mg Warfarin Sodium (Coumadin) 5 mg PO SuMoTuWeThFr@1700 [facility] Warfarin Sodium (Coumadin) 7.5 mg PO Sa@1700 [facility]
[2017-05-25] MEDS ORDERED: Warfarin Sodium 2.5 MG TAB PO SCH (17:00)
[2017-05-25] MEDS ORDERED: Warfarin Sodium 5 MG TAB PO SCH (17:00)
--- NOTE | 2017-05-25 17:23 | NM ---
RADIONUCLIDE DIURETIC RENOGRAM: 05/25/17 HISTORY: Chronic right hydronephrosis status post diverting urostomy. Patient has history of cervical cancer, stricture in the right ureter secondary to radiation therapy. RADIOPHARMACEUTICAL: 7.4 millicuries technetium [id number] injected intravenously. DIURETIC: 33 mg IV Lasix administered 15 minutes before the radiopharmaceutical. FINDINGS: There is good blood flow to both kidneys with good tracer uptake on either side. There is normal bila teral excretion of tracer material into the urostomy bag. The renogram curves are normal. The differe ntial function measures 46% on the right and 54% on the left. IMPRESSION: No evidence of high grade obstruction. POS: [facility]
--- NOTE | 2017-05-25 20:16 | PRG ---
DATE OF SERVICE: 05/25/2017 SUBJECTIVE: Ms. Hernadez still gets some soreness in the left lower quadrant when she takes in the tal ar liquids, but otherwise she is tolerating them well and passing bowel movements. She has no nausea or vomiting. OBJECTIVE: VITAL SIGNS: Temperature 98.0, pulse 55, blood pressure 119/72. GENERAL: She is in no acute distress, alert and oriented x3. LUNGS: Clear to auscultation bilaterally. HEART: Regular rate and rhythm. ABDOMEN: Soft. Minimal tenderness in the left lower quadrant without guarding. Bowel sounds are pr esent. EXTREMITIES: No lower extremity edema. LABORATORY DATA: White blood cell count 9.2 yesterday. Stool C. diff antigen was positive, but nega tive for toxigenic C. diff by PCR. IMPRESSION: Small-bowel obstruction likely secondary to previous radiation and adhesions from multip le surgeries. I doubt that this is an infectious source for her obstruction. Given her history of C lostridium difficile and now positive antigen but negative toxin, I think we should try to taper her antibiotics unless they are absolutely necessary. If she is okay to discontinue from a renal standpo int, then I think the antibiotics can be discontinued from a GI standpoint at this time. We will jigar it the primary service around tomorrow but from a GI standpoint, the antibiotics can be stopped. RECOMMENDATIONS: 1. Probiotic daily. 2. Advance to a full liquid diet. If she tolerates this well tomorrow, then advance to a low residu e diet. When she is tolerating that well, she can discharge home. 3. Okay to discontinue antibiotics tomorrow from a GI standpoint. I will defer this to the primary service. 4. Monitor the INR closely while on antibiotics and with altered oral intake.
[2017-05-25] MEDS: Famotidine 20 MG TAB PO SCH (20:26)
[2017-05-25] MEDS: Ciprofloxacin 500 MG TAB PO SCH (20:26)
[2017-05-25] MEDS: Citalopram 20 MG TAB PO SCH (20:26)
[2017-05-25] MEDS: metroNIDAZOLE 500 MG TAB PO SCH (20:26)
[2017-05-26] MEDS: Sodium Chloride 0.9% 1,000 ML IV SCH (03:20)
[2017-05-26 04:40] LABS: INR-International Normal Ratio 2.4; Prothrombin Time 27.4 SEC (12.0-14.7)
[2017-05-26] MEDS: Cefepime 2 GM, Syringe 2.5 ML in Sterile Water 10 ML SLOW IVP SCH (05:20)
[2017-05-26] MEDS: Ciprofloxacin 500 MG TAB PO SCH (05:20)
[2017-05-26] MEDS: Levothyroxine Sodium 112 MCG TAB PO SCH (05:20)
[2017-05-26] MEDS: Lactinex Tablet PO SCH (07:38)
[2017-05-26] MEDS: metroNIDAZOLE 500 MG TAB PO SCH (07:39)
[2017-05-26] MEDS: Magnesium Oxide 250 MG TAB PO SCH (07:39)
[2017-05-26] MEDS: Famotidine 20 MG TAB PO SCH (07:39)
[2017-05-26 07:56] VITALS: BP 126/70; TEMP 98.6
--- NOTE | 2017-05-26 08:30 | PRG ---
DATE OF SERVICE: 05/26/2015 SUBJECTIVE: The patient is feeling well. PHYSICAL EXAMINATION: VITAL SIGNS: Stable. ABDOMEN: Soft, nontender, nondistended. Conduit with pink, viable stoma. GENITOURINARY: Urine output clear. PERTINENT IMAGING: Lasix renal scan reviewed demonstrating no evidence of high- grade obstruction, function of the right kidney is stable at 46%. IMPRESSION AND PLAN: 1. Ms. Hernadez is a 51-year-old female with history of high-grade right ureteral stricture secondary to radiation, history of intraabdominal abscess. 2. Status post colon conduit urinary diversion at [facility] by Dr. Simpson. Her Lasix renal scan demonstrates stable renal function with no gross evidence of obstruction, her renal scan is relatively stable from 2 years prior. From a urologic perspective, she may be discharged anytime. The patient informed to call me for routine follow up in 2-3 months. I also informed the patient to follow up with Dr. Simpson at [facility]. 3. History of right punctate renal lithiasis, does not warrant treatment. will sign off. [facility]
--- NOTE | 2017-05-26 14:14 | DIS ---
DATE OF ADMISSION: 05/23/2017 DATE OF DISCHARGE: 05/26/2017 ADMITTING DIAGNOSIS: Acute abdominal pain. DISCHARGE DIAGNOSIS: Acute right hydronephrosis with no evidence of ureteric obstruction. SECONDARY DIAGNOSES: 1. Intractable diarrhea. 2. History of pulmonary embolism. 3. History of cerebral vein thrombosis. 4. History of hypothyroidism. 5. Radiation enteritis. CONSULTANTS INVOLVED IN THE CARE: Dr. Jameel Shafer, Dr. Mirtha Mcdaniel, and Bebo Kerns M.D. INVESTIGATIONS DONE DURING THIS ADMISSION: CT of the abdomen was done showing an evidence of right h ydronephrosis and evidence of right-sided moderate hydronephrosis associated with right-sided uretera l ileostomy and mild dilatation of the entire small bowel with some small bowel thickening. Renal scan was done. Nuclear medicine showing evidence of normal flow in both the ureters left great er than the right, but there has been no change from the previous scans in the past. HISTORY OF PRESENT ILLNESS AND HOSPITAL COURSE: In brief, this is a 51-year-old white female with [facility] medical history of cervical cancer with multiple abdominal surgeries and the urostomy with history of chemo and radiation treatment in 2005. The patient came to the hospital with acute abdominal flash n for past 1 week and associated with numerous episodes of nausea and vomiting. The patient was seen by Urology because of the hydronephrosis on the CAT scan and initially it was thought of putting a n ephrostomy tube because of the high grade obstruction showing on the CAT scan. So to confirm this, r adionuclide lasix nuclear scan was ordered which showed a normal flow in both ureters. Patient also had abdominal pain with enteritis secondary to radiation and stool culture was done which was showing evidence of a C. diff antigen, but C. diff toxin was negative, so GI was consulted for this and they ruled out infection. Patient was initially started on IV antibiotics with Cipro and Flagyl, which w as later discontinued. The patient was reassured and pain was well controlled and patient was discha rged home in stable condition. PHYSICAL EXAMINATION: On date of discharge: VITAL SIGNS: Blood pressure 126/70, heart rate is 60, respiratory rate 18 and saturation 98%. GENERAL: The patient is moderately built and moderately nourished, does not appears to be in acute d istress at this time. Alert and oriented x3. HEENT: Atraumatic, normocephalic. PERRLA. Extraocular muscles were intact. CARDIOVASCULAR: S1, S2 normal. No murmurs, rubs or gallops. LUNGS: Bilateral air entry was equal. No wheezing, no crackles. ABDOMEN: Soft, nontender, no guarding, no rebound tenderness. Bowel sounds normal. DISCHARGE MEDICATIONS: Celexa 20 mg p.o. at bedtime, Lasix 20 mg p.o. daily, hyoscyamine 0.125 mg p. o. at bedtime, levothyroxine 137 mcg daily, loperamide 2 mg p.o. b.i.d., magnesium oxide 500 mg daily , warfarin 5 mg p.o. as directed. DISCHARGE INSTRUCTIONS: Continue activity as tolerated. Advised to follow up with primary care dilma nguyen in 1-2 weeks. Advised to follow up with Dr. Mcdaniel in 2-3 months after she follows up migue castro Dr. in [place]. Advised to return to the ER if the patient develops any persistent abdominal pain. Patient is discha rged home and activity as tolerated. I spent 35 minutes with the patient on the day of discharge.
[2017-05-27] MEDS ORDERED: Warfarin Sodium 7.5 MG TAB PO SCH ×2 (17:00)
== END 2017-05-26 13:09 | disposition home or self-care (01) | DRG 394 ==
LOC: ERS 09:03 → T4-A 13:24
PROVIDERS: ADMIT Internal Medicine; ATTEND Internal Medicine
DX: K52.0 Gastroenteritis and colitis due to radiation (principal); K56.50 Intestinal adhesions [bands], unspecified as to partial versus complete obstruction; I27.82 Chronic pulmonary embolism; I82.509 Chronic embolism and thrombosis of unspecified deep veins of unspecified lower extremity; K56.7 Ileus, unspecified; N13.30 Unspecified hydronephrosis; Z79.01 Long term (current) use of anticoagulants; E03.9 Hypothyroidism, unspecified; Z85.41 Personal history of malignant neoplasm of cervix uteri; Z86.73 Personal history of transient ischemic attack (TIA), and cerebral infarction without residual deficits; Z87.891 Personal history of nicotine dependence; I10 Essential (primary) hypertension
CPT/HCPCS: 36415; 74018; 74177; 78708; 80048; 80053; 81003; 81015; 83690; 85025; 85610; 85730; 87045; 87046; 87324; 87449; 87493; 87899; 96361; 96374; 96375; A4216; A4641; A9562; J0692; J0744; J1940; J2270; J2405; S0028

== ENCOUNTER 2017-08-07 08:52 | Observation (INO) | payer SELFPAY ==
[2017-08-07 09:22] LABS: #Basophils 0.1 thou/uL (0.0-0.2); #Lymphocytes 2.7 thou/uL (1.20-3.40); #Monocytes 0.9 thou/uL (0.11-0.59); %Basophils 0.8 % (0.0-1.0); %Eosinophils 0.4 % (0.0-10.0); %Lymphocytes 21.1 % (21.0-51.0); %Monocytes 6.9 % (0.0-10.0); %Neutrophils 70.8 % (42.0-75.0); Mean Corpuscular HGB CONC 32.5 g/dL (32.0-36.0); Mean Corpuscular Hemoglobin 28.9 pg (27.0-31.0); Mean Corpuscular Volume 88.7 fl (81.0-99.0); Mean Platelet Volume 7.3 fL (7.4-10.4); Platelet Count 298 thou/uL (130-400); Red Blood Cell (RBC) Count 4.86 mill/uL (4.20-5.40); White Blood Cell (WBC) Count 12.7 thou/uL (4.8-10.8)
[2017-08-07] MEDS ORDERED: Promethazine HCl 25 MG/ML VIAL ONE ×2 (09:32→10:45)
--- NOTE | 2017-08-07 09:33 | RAD ---
PA AND LATERAL CHEST: Date: 08/07/17 HISTORY: Epigastric abdominal pain and chest pain. Vomiting x2. Patient states abdominal pain radiates to the chest. COMPARISON: 05/08/15. FINDINGS: The cardiac silhouette and pulmonary vasculature are within normal limits. Lungs are clear. There has been no interval change from the prior exam. IMPRESSION: No acute cardiopulmonary process. POS: [facility]
[2017-08-07 09:50] LABS: ALT (SGPT) 16 U/L (8-55); AST (SGOT) 15 U/L (5-34); Albumin 4.4 g/dL (3.5-5.0); Alkaline Phosphatase 70 U/L (40-150); Anion Gap 14 mmol/L (10-20); BUN (Urea Nitrogen) 20 mg/dL (9.8-20.1); Bilirubin, Total 0.9 mg/dL (0.2-1.2); CK (CPK) 43 U/L (29-168); CKMB 1.5 ng/mL (0-6.6); Calc. Creatinine Clearance 0 mL/min (70-130); Calcium 10.7 mg/dL (7.8-10.44); Carbon Dioxide 27 mmol/L (22-29); Chloride 100 mmol/L (98-107); Estimated GFR-MDRD 45; Globulin 3.2 g/dL (2.4-3.5); Glucose 113 mg/dL (70-105); Potassium 3.9 mmol/L (3.5-5.1); Protein, Total 7.6 g/dL (6.0-8.3); Sodium 137 mmol/L (136-145); Troponin I Less than 0.010 ng/mL (< 0.028)
[2017-08-07] MEDS ORDERED: Morphine 4 MG/ML VIAL ONE (10:45)
--- NOTE | 2017-08-07 12:58 | CT ---
CT ABDOMEN AND PELVIS WITH IV CONTRAST: Date: 08-07-17 History: Abdominal pain. Vomiting. Comparison: 05-23-17 FINDINGS: The lung bases are clear. There is ileoconduit in the right lower quadrant. The kidneys have a lobulated appearance bilaterally with areas of scarring present in each kidney. Urinary bladder is decompressed. Dilated loops of small bowel are again seen within the left upper quadrant with post-surgical changes of loops of small bowel also again noted. There is distention of the stomach with contrast. Transiti on point is not visualized although the most distal small bowel proximal to the small bowel colonic a nastomosis is smaller in caliber. Again noted is fluid in the presacral location with perirectal inflammatory changes. Rectum also appe ars mildly thickening. This may be related to incomplete distention. There is no other interval cisneros e compared to prior study. IMPRESSION: 1. Post-surgical changes of multiple loops of bowel. There is dilation of the majority of the loops o f small bowel with greater dilatation involving the more proximal small bowel with the loops of more proximal small bowel measuring up to 4.6 cm in diameter. Exact etiology for bowel dilatation is uncer tain; although there is more normal caliber bowel near the small bowel colonic anastomosis without ab rupt transition. 2. Stable moderate right hydronephrosis and ileoconduit right lower quadrant. 3. Stable presacral edema and inflammatory changes. There is suggestion of mild thickening of the wal ls of the rectum, but this may be related to incomplete distention. 4. Evidence of hysterectomy and cholecystectomy. POS: [facility]
[2017-08-07] MEDS ORDERED: Benzocaine 20% Spray 60 ML CAN ONE (13:23)
[2017-08-07] MEDS ORDERED: Lidocaine Viscous Sol 2% 15 ml UD Cup ONE (13:23)
[2017-08-07] MEDS ORDERED: Fentanyl 100 MCG/2 ML VIAL ONE (14:06)
[2017-08-07 14:20] LABS: Bilirubin Negative (Negative); Blood, Urine Negative (Negative); Clarity CLOUDY (Clear); Glucose, Urine (Dipstick) Negative (Negative); Leukocyte Small (Negative); Nitrite Negative (Negative); Protein, Urine (Dipstick) Negative (Neg-Trace); Specific Gravity, Urine 1.011 (1.002-1.036); Urobilinogen 0.2 mg/dL (0.2-1.0); pH, Urine 7.5 (5.0-9.0)
[2017-08-07 14:22] LABS: Pathc Cast-AUWi Flag 0.87 (0-2.49); RBC/HPF 0-3 HPF (0-3)
[2017-08-07] MEDS ORDERED: ISOVUE-370 76%-LOCM 1 ML ONE (14:34)
[2017-08-07] MEDS ORDERED: Iopamidol 370 76% 50 ML VIAL FS ONE (14:34)
[2017-08-07 14:36] LABS: Bacteria/HPF 3+ HPF (None Seen); Hyaline Casts/LPF 0-3 HYALINE CAST LPF (0-3 Hyaline); Other Casts/LPF None Seen LPF (0-3 Hyaline); Renal Epithelial None Seen HPF (0-3); Squamous Epithelial 0-3 HPF (0-3); Transitional Epithelial NONE SEEN HPF (0-3)
--- NOTE | 2017-08-07 14:52 | RAD ---
CHEST 1 VIEW: HISTORY: Emergency exam. NG tube placement. COMPARISON: Radiograph 2:14. FINDINGS: Enteric tube is in place, although the tip is not well seen. The tip is likely in the mid to distal thoracic esophagus. IMPRESSION: Enteric tube tip not well seen, likely in the distal to mid 1/3 esophagus. Consider advancing. POS: [facility]
[2017-08-07] MEDS ORDERED: Ondansetron HCl/PF 4 MG/2 ML Vial IVP PRN (16:23)
[2017-08-07] MEDS ORDERED: Ondansetron ODT 4 MG TAB SL PRN (16:23)
[2017-08-07] MEDS ORDERED: Morphine 4 MG/ML VIAL SLOW IVP PRN (16:25)
[2017-08-07] MEDS: Sodium Chloride 0.9% 1,000 ML IV SCH ×2 (17:09→21:40)
[2017-08-07] MEDS ORDERED: Dextrose 5% in Water 1,000 ML IV PRN (19:44)
[2017-08-07] MEDS ORDERED: hydrALAZINE 20 MG/ML VIAL SLOW IVP PRN (19:44)
[2017-08-07] MEDS ORDERED: Dextrose 50% Abboject 50 ML SYRINGE SLOW IVP PRN (19:44)
[2017-08-07] MEDS ORDERED: Acetaminophen 1,000 MG in Premix Bag 1 BAG IVPB PRN (19:49)
[2017-08-07] MEDS ORDERED: Ketorolac Tromethamine 30 MG/ML VIAL IVP PRN (19:49)
--- NOTE | 2017-08-07 22:14 | HP ---
HISTORY OF PRESENT ILLNESS: Isidra Hernadez is a 51-year-old female who is known to me. She has had p ast laparoscopic cholecystectomy in 2010 and 2011. She had high-grade bowel obstruction due to adhes ions, requiring diagnostic laparoscopy converted to laparotomy with six segment of small bowel, termi nal ileum resected with primary anastomosis stapled. On 11/15/2011, she has a central line placed fo r TPN because of developed enterocutaneous fistula which resolved nonoperatively. On 04/12/2012, she developed another complete bowel obstruction. I saw her, she underwent laparotomy, one-hour adhesio lysis, right hemicolectomy, segmental small bowel resection, primary anastomosis, abdominal washout, wound closure with Telfa lissa. The patient has had a bilateral tubal ligation, total abdominal hyst erectomy, bilateral salpingo-oophorectomy in the admission of 2005 for cervical cancer [facility]. There is a history of a cardiac catheterization in [address] Barker with 40- 45% ejection fraction without coronary artery disease. Dr. Mcdaniel had been following her since 2011 with frequent right ureteral stent exchanges. Also, of note is that in 2013, patient had an upp er endoscopy by Dr. 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 The scope at that time could only be advanced to the transverse colon. Sigmoid colon at that time was noted be very fixed a nd scarred down due to multiple surgeries with smaller more flexible scope he could reach the transve rse colon. The patient, of note in 2012 [place], underwent colonic conduit for urostomy. She states at the time of operation, a colon surgeon was invited and felt that she did not need a colostomy. I saw her in 01/2016 for an episode of nausea, vomiting, and retching with her experiencing pain in t he left upper quadrant. CAT scan of abdomen and pelvis suggesting a bowel obstruction. She was obse rved and treated nonoperatively. In 05/2017, the patient was admitted again for nausea, vomiting, ab dominal distention, felt as possible enteritis and CAT scan obtained with IV contrast on that date , noted dilatation of the entire small bowel, bowel wall thickening, mild right hydronephrosis, all suggestive of bowel obstruction. Again, this is treated nonoperatively and resolved. The patient developed central abdominal pain on 01:30 this morning, nausea, vomiting, presented in th e emergency room, had a CAT scan, again revealing small bowel dilatation with probable distal small b owel decompression just before the emptying into the transverse colon (previous right hemicolectomy). She had stool in her transverse colon, descending and sigmoid colon. The urostomy described, was s een on CAT scan without problems. The patient was admitted and NG tube placed. By this time, she is feeling somewhat better. On admission, white count was 12, hemoglobin 14, creatinine 1.26, BUN 20, sodium 137. Liver function tests normal. ALLERGIES: She reports a red streak in her arm when she received IV LEVAQUIN, but she is to take Cip ro without problems. I have told her this is more likely not a true allergy, but just an infusion re action. TOBACCO: None. ALCOHOL: None. PAST MEDICAL HISTORY: History of cerebral thrombosis, history of pulmonary embolism on chronic antic oagulation; history of urostomy using the colon conduit; history of right colectomy; history of cervi gabriella cancer, status post hysterectomy and radiation therapy. PAST SURGICAL HISTORY: Extensive as noted above. SOCIAL HISTORY: Patient has been in the last few years. 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 HOME MEDICATIONS: Coumadin daily, magnesium oxide 500 daily, Imodium p.r.n., levothyroxine 137 mcg d aily, Lactobacillus daily, Levsin 0.125 mg a.c. p.r.n., furosemide 20 mg a day, cholecalciferol daily , Ditropan daily. REVIEW OF SYSTEMS: Ten-point noncontributory. History of cardiac catheterization that did not revea l any coronary artery disease. PHYSICAL EXAMINATION: GENERAL: Patient is in no distress. She has an NG tube in place about 400 meals, is in her suction canister. LUNGS: Clear to auscultation. CARDIAC: Regular rate and rhythm without murmur or gallop. ABDOMEN: Soft, bowel sounds present, nondistended, nontender, midline scar. Uroscopy conduit, right lower quadrant. EXTREMITIES: Unremarkable. VITAL SIGNS: 151/82, 52, 22, 97.5 degrees, 61 kilograms. LABORATORY DATA: Sodium 137, potassium 3.9, creatinine 1.26, glucose 113, calcium 10.7, white count 12, hemoglobin 14. ASSESSMENT AND PLAN: 1. Radiological findings consistent with a bowel obstruction, although she feels somewhat better. S he has not passed flatus or stool since being in the hospital, she had a small bowel movement and pas sed flatus prior to coming to the hospital. She has had past history, is consistent with a bowel obs truction, treated nonoperatively since 2012, which was her last operation for urostomy. At this poin t, I would continue NG tube suction. Repeat abdominal x-rays in the small bowel follow through Gastr ografin tomorrow and make recommendations based on these studies. 2. History of cerebral thrombosis, pulmonary embolus on chronic anticoagulation protein-S deficiency . Continue to check her PT/INR in the morning. Consider Lovenox therapy, pending INR. 3. History of hysterectomy for cervical cancer, status post radiation and chemotherapy, thick sigmoi d colon, able to have a colonoscopy in the mid transverse colon. No evidence of colon problems at th is time. 4. Mild chronic kidney disease, probably is her baseline currently.
[2017-08-07] MEDS: Famotidine/PF 20 mg/2ml Vial SLOW IVP SCH (22:51)
[2017-08-08] MEDS: D5 1/2 NS w/20 mEq KCL 1,000 ML IV SCH ×3 (04:22→12:52)
[2017-08-08 05:34] LABS: #Basophils 0.1 thou/uL (0.0-0.2); #Eosinphils 0.1 thou/uL (0.0-0.7); #Lymphocytes 1.3 thou/uL (1.20-3.40); #Monocytes 0.6 thou/uL (0.11-0.59); #Neutrophils 5.2 thou/uL (1.40-6.50); %Basophils 0.7 % (0.0-1.0); %Eosinophils 0.9 % (0.0-10.0); %Lymphocytes 17.9 % (21.0-51.0); %Neutrophils 72.4 % (42.0-75.0); Hemoglobin 12.1 g/dL (12.0-16.0); Mean Corpuscular HGB CONC 32.8 g/dL (32.0-36.0); Mean Corpuscular Hemoglobin 29.6 pg (27.0-31.0); Mean Corpuscular Volume 90.4 fl (81.0-99.0); Mean Platelet Volume 7.1 fL (7.4-10.4); Platelet Count 218 thou/uL (130-400); RBC Distribution Width 12.2 % (11.5-14.5); White Blood Cell (WBC) Count 7.2 thou/uL (4.8-10.8)
[2017-08-08 05:40] LABS: PTT 36.5 SEC (22.9-36.1); Prothrombin Time 32.2 SEC (12.0-14.7)
[2017-08-08 06:09] LABS: ALT (SGPT) 146 U/L (8-55); AST (SGOT) 164 U/L (5-34); Albumin 3.1 g/dL (3.5-5.0); Alkaline Phosphatase 79 U/L (40-150); Anion Gap 10 mmol/L (10-20); BUN (Urea Nitrogen) 12 mg/dL (9.8-20.1); Calc. Creatinine Clearance 71 mL/min (70-130); Calcium 8.4 mg/dL (7.8-10.44); Carbon Dioxide 23 mmol/L (22-29); Chloride 111 mmol/L (98-107); Estimated GFR-MDRD 67; Globulin 2.3 g/dL (2.4-3.5); Glucose 91 mg/dL (70-105); Potassium 3.7 mmol/L (3.5-5.1); Protein, Total 5.4 g/dL (6.0-8.3); Sodium 140 mmol/L (136-145)
--- NOTE | 2017-08-08 09:11 | PRG ---
DATE OF SERVICE: 08/08/2017 SUBJECTIVE: Ms. Hernadez is doing well today. She has had a bowel movement. She has passed flatus. NG tube has put out 300 mL overnight. There have been problems with the suction apparatus in the bashir m and it has been clamped most of the time and she has not had any nausea or vomiting. She denies an y abdominal pain. PHYSICAL EXAMINATION: LUNGS: Clear to auscultation. CARDIAC: Regular rate and rhythm without murmur or gallop. ABDOMEN: Soft, nontender, nontympanitic. LABORATORY: This morning her white count is 7, hemoglobin 12. Basic metabolic profile essentially u nremarkable. AST, ALT 164/146 respectfully. Overall, the patient is doing well. She has a small bowel follow through this morning ordered. Once the small bowel follow through is complete, her nurse will call me and hopefully we can advance her diet and she may be ready for discharge home later today or in the morning, but will await the small bowel follow through. I have reviewed her records and personally reviewed her CAT scan with the radi ologist. It appears radiologically on her CAT scan, she had changes consistent with a partial bowel obstruction on admission. Review of her records reveals that Dr. Lyn performed a colonoscopy 2-3 years ago and had to use a s maller scope to negotiate the tortuous sigmoid colon that was fixed by adhesions from her prior histo ry of radiation from her cervical cancer and her hysterectomy. Her colon; however, is patent. Review of her CAT scan reveals that there is stool in the colon, but her problem seems to be primary small bowel. She is status post previous right colectomy and does have a urostomy that she reports u tilized a portion of her colon (portion of which she does not recall). The plan at this time would b e to avoid operative intervention if possible. The patient has a history of C. diff colitis. She is followed by Dr. Lyn and we have avoided antibiotic use. She has a bowel regimen that seems to wor k well for her with chronic loose stools that she takes MiraLax as needed and is on a low residue t.
--- NOTE | 2017-08-08 12:32 | RAD ---
ABDOMEN TWO VIEW: History: Abdominal pain. Possible obstruction. Comparison: CT prior day. FINDINGS: The enteric tube is in place with the tip at GE junction. Mildly dilated loops of small bowel in the left upper quadrant. Right upper quadrant surgical clips. No free air under the hemidiaphragms. IMPRESSION: Enteric tube tip at the distal esophagus, recommend advancing. POS: [facility]
[2017-08-08 13:22] VITALS: BMI 22.4
[2017-08-08] MEDS ORDERED: tiZANidine HCl 4 MG TAB PO PRN (13:30)
--- NOTE | 2017-08-08 13:35 | RAD ---
SMALL BOWEL FOLLOW THROUGH STUDY: HISTORY: Small-bowel obstruction. COMPARISON: CT abdomen and pelvis from the prior day. FINDINGS: The patient was given Gastrografin contrast through the enteric tube. There were mildly distended loops of small bowel. Contrast was seen within the large bowel after two hours. Of note, there was small volume contrast within the large bowel on the blood bank specialist radiograph, demonstratin g that this was not likely a small-bowel obstruction. IMPRESSION: No evidence of high grade small bowel obstruction. POS: [facility]
[2017-08-08] MEDS ORDERED: Hyoscyamine Sulfate SL 0.125 mg Tablet PO PRN (13:36)
[2017-08-08] MEDS ORDERED: Loratadine 10 MG TAB PO PRN (13:37)
[2017-08-08] MEDS ORDERED: Dicyclomine 20 MG TAB PO PRN (13:47)
[2017-08-08] MEDS ORDERED: Diphenoxylate HCl/Atropine Tablet PO PRN (13:47)
[2017-08-08] MEDS ORDERED: Cyclobenzaprine 10 MG TAB PO PRN (13:48)
[2017-08-08] MEDS: Famotidine/PF 20 mg/2ml Vial SLOW IVP SCH (14:18)
[2017-08-08] MEDS ORDERED: MD-Gastroview 120 ML BOT ONE (14:58)
[2017-08-08] MEDS ORDERED: Warfarin Sodium 7.5 MG TAB PO SCH (17:00)
[2017-08-08] MEDS: Mometasone 100 MCG HFA INHALER INH SCH (18:27)
[2017-08-08] MEDS ORDERED: Famotidine 40 MG/4 ML VIAL SLOW IVP SCH (21:00)
[2017-08-08] MEDS ORDERED: Citalopram 20 MG TAB PO SCH (21:00)
[2017-08-08] MEDS ORDERED: Magnesium Oxide 250 MG TAB PO SCH (21:00)
[2017-08-08] MEDS: Famotidine 20 MG TAB PO SCH (21:13)
[2017-08-09] MEDS ORDERED: Levothyroxine 150 MCG TAB PO SCH (06:00)
[2017-08-09] MEDS: Mometasone 100 MCG HFA INHALER INH SCH (06:57)
[2017-08-09 08:09] LABS: INR-International Normal Ratio 2.7; Prothrombin Time 29.6 SEC (12.0-14.7)
[2017-08-09] MEDS: Famotidine 20 MG TAB PO SCH ×2 (08:36→08:40)
[2017-08-09] MEDS ORDERED: Lactinex Tablet PO SCH (09:00)
[2017-08-09 16:25] VITALS: BP 122/75; TEMP 98
[2017-08-09] MEDS ORDERED: Warfarin Sodium 5 MG TAB PO SCH (17:00)
--- NOTE | 2017-08-09 18:35 | PRG ---
DATE OF SERVICE: 08/09/2017 SUBJECTIVE: Ms. Hernadez is doing well today. She is tolerating her daughter. Small bowel follow thr ough was normal. Bowel function is good. OBJECTIVE: LUNGS: Clear to auscultation. CARDIAC: Regular rate and rhythm without murmur or gallop. ABDOMEN: Soft, nontender. At this point, she is doing well. We plan to discharge home to resume her home medications. She navneet l follow up with me as needed.
--- NOTE | 2017-08-10 07:49 | DIS ---
DATE OF ADMISSION: 08/07/2017 DATE OF DISCHARGE: 08/09/2017 DISCHARGE DIAGNOSES: Bowel obstruction possibly secondary to peritoneal adhesions. PROCEDURES DURING THIS HOSPITALIZATION: CT scan of abdomen and pelvis in the emergency room, jaime chance follow through 08/08/2017. Note: Chronically dilated small bowel present on past admissions an d CAT scans probably due to subtotal colectomy for her previous adhesive disease and colon interposit ion urostomy. HISTORY: A 51-year-old female with past cholecystectomy that was performed in 2010. In 2011, she whaley d high-grade bowel obstruction due to adhesions requiring diagnostic laparoscopy, converted to laparo corbin with six and a segment of small bowel, terminal ileum resected with primary anastomosis stapled. Postoperatively, she developed enterocutaneous fistula, treated nonoperatively. On 04/12/2012, she developed another complete bowel obstruction and underwent laparotomy, one-hour adhesiolysis, right hemicolectomy, segmental small bowel resection, primary anastomosis, ileocolonic anastomosis, abdomin al washout, wound closure, Telfa lissa. The patient in the past has had bilateral tubal ligation, to bernard abdominal hysterectomy, bilateral salpingo-oophorectomy, and has had a history in 2005 for cervic al cancer followed by chemoradiation therapy. She has a history of cardiac catheterization in [address] Barker with a 40%-45%, mild cardiomyopathy without coronary artery disease. Since 2011, Dr. Ra valdivia has been following her for ureteral stent exchanges. In 2013, she had upper endoscopy by Rey Lyn that was normal and subsequently on 07/09/2014, flexible sigmoidoscopy by Dr. Lyn with fec al microbial transplant for recurrent C. diff colitis. At that time, Dr. Lyn could not negotiate t he colon due to fixation from previous radiation therapy. He required flexible upper endoscope and w as able to visualize the transverse colon. The lumen was patent. The patient mentioned that when romaine shrestha went to have her urostomy with a colonic interposition in [place] for her chronic ureteral stri ctures, she states that a colon surgeon was present and said her sigmoid colon was good and did not n eed to have that resected. I saw her in January 2016 for an episode of nausea, vomiting, and retchin g with pain in her left upper quadrant. CAT scan of the abdomen and pelvis suggested a bowel obstruc tion. She was observed and treated nonoperatively. In May 2017, the patient was admitted again with nausea, vomiting, and abdominal distention; treated for possible enteritis; and a CAT scan with IV contrast on today noted dilatation of the entire small bowel, bowel wall thickening, and mild rig ht hydronephrosis, all suggestive of bowel obstruction. Again, this was treated nonoperatively. Carlo regan saw her and felt that mild right hydronephrosis was chronic and no intervention was necessary fo r that. Dr. Kerns saw her. On the day of admission, she developed pain at 01:30, nausea, vomiting, and presented to the emergency room. CAT scan revealed changes consistent with bowel obstruction wi th distal small bowel decompression with decompression of the ileum just before its anastomosis to th e proximal transverse colon. She had stool in her transverse colon, descending colon, and sigmoid co dayna. The urostomy described, which had been fabricated from the colon according to the patient and u rostomy was without radiological abnormalities. The patient's white count was 12, hemoglobin 14, cre atinine 1.26, BUN 20. The patient was admitted, NG tube placed. She really did not have much out, a lthough output was inspissated. Post admission, she underwent a small bowel follow through with norm al transit to the colon. Her NG tube was removed. She tolerated her diet. She was discharged home to continue her medications. She is on chronic anticoagulation due to a history of central thrombosi s, pulmonary embolus with a protein S deficiency. At this point, she has been discharged home to resume her home medications, Flovent Diskus 2 sprays n asally p.r.n., fexofenadine for allergies, atropine, Lomotil p.r.n. diarrhea, dicyclomine 20 mg q.8 h ours p.r.n., cyclobenzaprine 10 mg p.o. t.i.d., tizanidine 5 mg p.o. at bedtime p.r.n., vitamin D3, _ ____, hyoscyamine p.r.n., lactobacillus, levothyroxine 150 mcg daily, magnesium oxide 500 mg at bedti me, Coumadin 5 mg at bedtime and 7.5 mg p.o. at bedtime at times. Note: The patient did not receive any oral or intravenous antibiotics this hospitalization her past history of C. difficile colitis. Plan is for followup with her gastrologist, Dr. Lyn as katelyn reyesed. Follow up with me as needed.
== END 2017-08-09 18:34 | disposition home or self-care (01) ==
LOC: ERS 08:52 → SURG A 14:32
PROVIDERS: ADMIT Specialist; ATTEND Specialist
DX: K56.609 Unspecified intestinal obstruction, unspecified as to partial versus complete obstruction (principal); N18.2 Chronic kidney disease, stage 2 (mild); Z86.73 Personal history of transient ischemic attack (TIA), and cerebral infarction without residual deficits; Z86.711 Personal history of pulmonary embolism; Z85.41 Personal history of malignant neoplasm of cervix uteri; Z92.21 Personal history of antineoplastic chemotherapy; Z92.3 Personal history of irradiation; Z88.1 Allergy status to other antibiotic agents; Z79.01 Long term (current) use of anticoagulants; Z79.899 Other long term (current) drug therapy; Z90.49 Acquired absence of other specified parts of digestive tract; Z98.890 Other specified postprocedural states
CPT/HCPCS: 36415; 71045; 71046; 74019; 74177; 74250; 80053; 81003; 81015; 82550; 82553; 83690; 84484; 85025; 85610; 85730; 93005; 96361; 96365; 96372; 96375; 96376; G0378; J2270; J2550; J3010

== ENCOUNTER 2017-10-17 01:06 | Inpatient (IN) | payer BC, SELFPAY ==
[2017-10-17 01:43] LABS: #Basophils 0.1 thou/uL (0.0-0.2); #Eosinphils 0.1 thou/uL (0.0-0.7); #Monocytes 1.1 thou/uL (0.11-0.59); #Neutrophils 8.6 thou/uL (1.40-6.50); %Basophils 0.5 % (0.0-1.0); %Eosinophils 0.7 % (0.0-10.0); %Lymphocytes 16.9 % (21.0-51.0); %Monocytes 8.9 % (0.0-10.0); %Neutrophils 72.9 % (42.0-75.0); Hemoglobin 13.4 g/dL (12.0-16.0); Mean Corpuscular HGB CONC 33.4 g/dL (32.0-36.0); Mean Corpuscular Hemoglobin 29.2 pg (27.0-31.0); Mean Corpuscular Volume 87.5 fL (78.0-98.0); Mean Platelet Volume 6.8 fL (7.4-10.4); Platelet Count 323 thou/uL (130-400); RBC Distribution Width 11.9 % (11.5-14.5); Red Blood Cell (RBC) Count 4.59 mill/uL (4.20-5.40); White Blood Cell (WBC) Count 11.8 thou/uL (4.8-10.8)
[2017-10-17 02:04] LABS: ALT (SGPT) 13 U/L (8-55); AST (SGOT) 17 U/L (5-34); Albumin 4.1 g/dL (3.5-5.0); Alkaline Phosphatase 58 U/L (40-150); Anion Gap 10 mmol/L (10-20); BUN (Urea Nitrogen) 13 mg/dL (9.8-20.1); Bilirubin, Total 1.1 mg/dL (0.2-1.2); Calc. Creatinine Clearance 0 mL/min (70-130); Carbon Dioxide 27 mmol/L (22-29); Chloride 104 mmol/L (98-107); Estimated GFR-MDRD 58; Globulin 2.9 g/dL (2.4-3.5); Glucose 105 mg/dL (70-105); Potassium 3.9 mmol/L (3.5-5.1); Sodium 137 mmol/L (136-145)
[2017-10-17 02:21] LABS: Thyroid Stimulating Hormone 0.0151 uIU/mL (0.35-4.94)
[2017-10-17 05:10] LABS: T4 14.2 ug/dL (4.87-11.72)
[2017-10-17 06:06] LABS: Bilirubin Negative (Negative); Blood, Urine Negative (Negative); Clarity CLOUDY (Clear); Glucose, Urine (Dipstick) Negative (Negative); Leukocyte Large (Negative); Nitrite Positive (Negative); Protein, Urine (Dipstick) Negative (Neg-Trace); Specific Gravity, Urine 1.005 (1.002-1.036); Urobilinogen 0.2 mg/dL (0.2-1.0); pH, Urine 7.5 (5.0-9.0)
[2017-10-17 06:08] LABS: Bacteria/HPF 2+ HPF (None Seen); Hyaline Casts/LPF 0-3 HYALINE CAST LPF (0-3 Hyaline); Squamous Epithelial None Seen HPF (0-3); WBC/HPF 21-50 HPF (0-3)
[2017-10-17] MEDS ORDERED: Oxymetazoline HCl 0.05% ( 15 ML ) ONE (07:13)
[2017-10-17] MEDS ORDERED: Piperacillin/Tazobactam 3.375 GM VIAL ONE (07:13)
[2017-10-17] MEDS ORDERED: Ondansetron ODT 8 MG TAB ONE (07:13)
[2017-10-17] MEDS ORDERED: Sodium Chloride 0.9% 100 ML ONE (07:13)
[2017-10-17] MEDS ORDERED: Lidocaine Viscous Sol 2% 15 ml UD Cup ONE (07:13)
--- NOTE | 2017-10-17 08:53 | HP ---
DATE OF ADMISSION: 10/17/2017. CHIEF COMPLAINT: Abdominal pain. HISTORY OF PRESENT ILLNESS: This is a 51-year-old female patient with a complicated history includin g recurrent small bowel obstructions, who presents to the emergency department early this morning wit h complaints of abdominal pain. The patient was in her usual state of health. Yesterday, she develo ped some abdominal pain and nausea. She was able to eat. She did have a bowel movement. Her pain w orsened and she presented to the emergency department this morning for further evaluation. She was f ound to have another small-bowel obstruction. NG tube was placed in the emergency department with so me improvement of her symptoms and she is now being admitted for further evaluation at this time. Please see history and physical from Dr. Phillips in 07/2017 during her last episode of a small-bowel o bstruction. The patient has a history of multiple abdominal surgeries. She underwent a total abdomi nal hysterectomy and bilateral salpingo-oophorectomy in 2005 for cervical cancer followed by chemothe rapy and radiation therapy. 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 This had led to multiple urinary tract infections and she developed a chronic Clostridium difficile colitis. In 2014, she underwent fecal microbial transplant by Dr. Lyn to try to resolve the Clostridium difficile. She had some improvement at that time. She also had a coloni c conduit urostomy placed in [facility] in 2012. Since that time, she has been having recurrent epi sodes of her small bowel obstructions, most of the time which resolve medically without requiring sonam edilia. She did have a high-grade bowel obstruction due to adhesions requiring diagnostic laparoscopy and laparotomy with lysis of adhesions in 2011. PAST MEDICAL HISTORY: As described above. She does have a history of cerebral thrombosis as well as pulmonary embolism in the past and now requiring chronic anticoagulation, history of cervical cancer status post hysterectomy, radiation and chemotherapy, history of ureteral fistula, history of Clostr idium difficile colitis. PAST SURGICAL HISTORY: As described above. MEDICATIONS: Include Coumadin, magnesium oxide, levothyroxine 137 mcg daily, lactobacillus daily, Le vsin p.r.n., Lasix 20 mg p.r.n., Ditropan daily. ALLERGIES: LEVAQUIN, but takes Cipro without difficulties. SOCIAL HISTORY: She is . 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 No smoking, no junior g use. REVIEW OF SYSTEMS: As per the history of present illness: General: She denies any recent fevers, c hills or recent illness. HEENT: Denies headache, visual or hearing changes. Cardiac: Denies chest pain, shortness of breath or palpitations. Pulmonary: Denies cough or hemoptysis. Gastrointestinal: As per the history of present illness. She did have a normal bowel movement last night and this morning. Genitourinary: History of recurrent urinary tract infections, history of ur eteral fistula. Psychiatric: History of anxiety and depression, but this has been stable on the cit alopram. Musculoskeletal: Denies joint pains at this time. PHYSICAL EXAMINATION: VITAL SIGNS: Temperature 98.3, pulse 68, respirations 16, blood pressure 128/78, pulse ox is 100% on room air. GENERAL: She is awake and alert, in no acute distress. Speech is clear. NECK: Supple. HEART: Regular rate and rhythm. LUNGS: Clear. ABDOMEN: Decreased bowel sounds. Diffuse tenderness, worse in the lower abdomen. She does have a r ight-sided urostomy bag. EXTREMITIES: No calf tenderness. No edema. LABORATORY DATA: White blood cell count 11,800, hemoglobin and hematocrit are 13.4 and 40.2 with nor mal differential, platelets 323. Sodium 137, potassium 3.9, chloride 104, CO2 of 27, BUN and creatin ine are 13 and 1.01 with a GFR of 58. Serum glucose of 105. Liver enzymes are normal. Albumin of 4 .1. Lipase is normal. TSH is low, T3 and T4 slightly elevated. Urinalysis with positive nitrites, large leukocyte esterase, large white blood cells. ASSESSMENT AND PLAN: This is a 51-year-old female with multiple abdominal surgeries, now with acute small-bowel obstruction. Agree with NG tube, decompression of her bowels. Consult Surgery for furth er evaluation and monitoring. 1. History of a hypercoagulable state due to protein S deficiency. We will continue Coumadin. Cons ider switching to Lovenox if she can take p.o. 2. History of recurrent urinary tract infection with abnormal UA. We will await urine cultures prio r to starting antibiotics due to her history of Clostridium difficile. 3. Hypothyroidism, corrected, we will decrease her thyroid dose at this time.
[2017-10-17] MEDS ORDERED: LEVOTHYROXINE SODIUM 150 MCG PO SCH (09:00)
[2017-10-17] MEDS: Lactinex Tablet PO SCH (10:01)
[2017-10-17 10:10] LABS: INR-International Normal Ratio 1.7
[2017-10-17 10:13] VITALS: BMI 23.3
--- NOTE | 2017-10-17 10:34 | CT ---
PRELIMINARY REPORT/[facility]/EMERGENTY AFTER-HOURS PROCEDURE CT Abdomen and Pelvis With Intravenous Contrast CLINICAL HISTORY: 51 years old, female; Pain and signs and symptoms; Constipation; Abdominal pain; Generalized; Patient HX: 51 yo f presents to ed with abdominal pain. Pt reports she began feeling pain in her abdomen ese und 10 am yesterday, but pain got worse last night. Pt describes pain as a "blockage feeling". Pt rep orts she hasn't eaten anything recently. Pt reports that she has had several sbos in the past due to scar tissue build up from past radiation treatment for cervical cancer. Pt reports some nausea. Pt de nies vomiting, denies fever, denies chills, denies chest pain, denies SHORTNESS OF BREATH TECHNIQUE: Axial computed tomography images of the abdomen and pelvis with intravenous contrast. Coronal reforma tted images were created and reviewed. COMPARISON: No relevant prior studies available. FINDINGS: Lung bases: The visualized portions of the lung bases are normal. ABDOMEN: Liver: There are no focal liver lesions identified. Gallbladder and bile ducts: There has been a cholecystectomy. No ductal dilation. Pancreas: The pancreas appears normal. No ductal dilation. Spleen: The spleen is normal. Adrenals: The adrenal glands are normal. Kidneys and ureters: The kidneys appear normal. No hydronephrosis. Stomach and bowel: The duodenum is unremarkable. The small large bowel is distended with fluid measur ing up to 5 cm. There is patent small large bowel anastomosis. Questionable narrowing of the proximal colon near the anastomosis is noted for which obstruction is possible. There is nonspecific distal colonic wall thickening. PELVIS: Appendix: Probably surgically absent. Bladder: Patient is post cystectomy with bilateral ureteral ileal conduits and RIGHT lower quadrant i leostomy. Reproductive: Post hysterectomy. ABDOMEN and PELVIS: Intraperitoneal space: Normal. No free air. No significant fluid collection. Bones/joints: No acute fracture. No dislocation. Soft tissues: Normal. Vasculature: Normal. No abdominal aortic aneurysm. Lymph nodes: Normal. No enlarged lymph nodes. IMPRESSION: Diffuse small and proximal large bowel distention with fluid with narrowing of the colon near the ile ocolonic anastomosis and fluid noted within the large bowel distally suggestive of partial obstructio n. Distal colonic wall thickening raises the possibility for colitis. Thank you for allowing us to participate in the care of your patient. Dictated and Authenticated by: Alexey Nair MD 10/17/2017 6:22 AM Central Time ([place] & [place]) FINAL REPORT CT ABDOMEN AND PELVIS WITH IV AND ORAL CONTRAST: DATE: 10/17/17. TIME: Performed on an emergency basis at 0542 hours. HISTORY: Abdominal pain. Prior surgery. COMPARISON: 08/07/17. FINDINGS: Distention of the small bowel and remaining colon is confirmed, so that partial obstruction of the di stal bowel, potentially at anastomosis in the right lower quadrant, must be considered. Circumferent ial wall thickening of the distal colon and rectum concerning for colitis. Extensive postoperative c hanges and other chronic-type findings are stable. POS: [facility]
[2017-10-17] MEDS ORDERED: Iopamidol 370 76% 50 ML VIAL FS ONE (10:35)
[2017-10-17] MEDS ORDERED: ISOVUE-370 76%-LOCM 1 ML ONE (10:35)
--- NOTE | 2017-10-17 14:56 | RAD ---
UPRIGHT AND SUPINE ABDOMINAL RADIOGRAPHS: 10/17/2017 HISTORY: Small bowel obstruction. COMPARISON: CT abdomen and pelvis from 10/17/2017. FINDINGS: There has been interval placement of a nasogastric tube, with the tip overlying the expected location of the gastric antrum. Surgical clips overly the right upper quadrant. Limited visualized lung bas es are clear. Surgical clips overly the right upper quadrant. There are multiple surgical clips overlying the pelvis, with scattered radiopaque suture material als o seen throughout the abdomen. Multiple dilated, gas-filled loops of small bowel are seen. There is contrast seen within the colon on this examination. Osseous structures are intact. IMPRESSION: Post surgical changes of the abdomen with findings suggesting a small bowel obstruction; however, con trast has progressed into the colon when compared to CT exam obtained earlier today. POS: [facility]
[2017-10-17] MEDS ORDERED: Warfarin Sodium 7.5 MG TAB PO SCH (17:00)
[2017-10-17] MEDS ORDERED: Acetaminophen 650 MG in Premix Bag 1 BAG IVPB PRN (17:57)
[2017-10-17] MEDS: D5 1/2 NS w/20 mEq KCL 1,000 ML IV SCH (18:13)
[2017-10-17] MEDS ORDERED: Pantoprazole 40 MG VIAL IVP SCH (21:00)
[2017-10-17] MEDS: Citalopram 20 MG TAB PO SCH (21:04)
[2017-10-18] MEDS: D5 1/2 NS w/20 mEq KCL 1,000 ML IV SCH ×2 (05:00→14:27)
--- NOTE | 2017-10-18 05:56 | CON ---
DATE OF CONSULTATION: 10/17/2017 REASON FOR CONSULTATION: Abdominal pain. HISTORY OF PRESENT ILLNESS: Ms. Hernadez is a 51-year-old woman with a complex past surgical history. She had multiple small bowel obstructions and underwent laparotomy and bowel resection due to adhesi ons from pelvic radiation for cervical cancer. Postoperatively, she developed a leak and fistulas an d underwent additional reoperations and resections and also a colonic conduit urostomy in 2012. She also has a history of severe Clostridium difficile colitis with fecal microbial transplant by Dr. Michael barcenas in 2014. She has had multiple episodes of nausea and abdominal pain consistent with partial small -bowel obstruction, which have resolved with conservative management. Her last lysis of adhesions wa s in 2011. Recurrent episode of abdominal pain started yesterday and worsened through the day she be came nauseated last night, but did not throw up. She has been having bowel movements up until yester day after her CT scan she had another couple of bowel movements. Currently, her abdominal pain is be tter and she has not nauseated. She has an NG tube in place which had to be replaced on her arrival on the floor due to being pulled out. She states that when was placed in the emergency room, there w as not much return. PAST MEDICAL HISTORY: Cervical cancer treated with salpingo-oophorectomy, chemotherapy and radiation . She also has a history of pulmonary embolism as well as cerebral vein thrombosis and is on chronic anticoagulation for that and has a history of severe Clostridium difficile colitis. PAST SURGICAL HISTORY: Bilateral salpingo-oophorectomy. 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 OUTPATIENT MEDICATIONS: Include Coumadin, magnesium, Synthroid, lactobacillus, Levsin, Lasix, and Di tropan. ALLERGIES: She reports an allergy to LEVAQUIN, but tolerates CIPROFLOXACIN. SOCIAL HISTORY: No tobacco, drug, or alcohol abuse. REVIEW OF SYSTEMS: Ten-system review of systems is negative except per HPI. She has not had any fev ers or chills and she denies shortness of breath or chest pain. PHYSICAL EXAMINATION: VITAL SIGNS: The patient has been afebrile since her admission. Heart rate is in the 50s to 60s, re spiratory rate 14-16, 99% saturated on room air, blood pressure is mildly elevated at 142/74. GENERAL: Reveals a healthy appearing woman in no acute distress. She is not flushed or toxic in beth earance. She is not jaundiced or icteric. HEENT: Unremarkable. NECK: Supple, without lymphadenopathy or thyroid nodules. HEART: Regular in its rate and rhythm without murmurs, rubs or gallops. LUNGS: Clear to auscultation bilaterally. ABDOMEN: Soft, slightly tender to palpation diffusely without focal findings. Bowel sounds are some what hyperactive. She has a healed midline incision and a right lower quadrant urostomy bag. No pal pable masses or hernias. EXTREMITIES: Warm and well perfused without edema. NEUROLOGIC: No focal deficits. PSYCHIATRIC: Alert, oriented, and appropriate. LABORATORY AND X-RAY FINDINGS: White count is mildly elevated at 11.8, hematocrit 40, and platelets 323. INR is 1.7. Electrolytes and LFTs are unremarkable. Free T4 is mildly elevated and TSH is sli ghtly low. UA is positive for nitrites and leukocyte esterase and has 21-50 white blood cells and 2+ bacteria. Culture is pending report. CT images are reviewed and I agree with the written report of dilated small bowel. The radiologist noted questionable narrowing of the proximal colon near the an astomosis. However, the colon distal to this area looks dilated again and there is a fair amount of fluid in the colon as well as the small bowel. The anastomosis was widely patent and I do not see a definite transition point. The radiologist also comments on distal colonic wall thickening, but I do not notice any inflammatory changes. ASSESSMENT: Abdominal pain and nausea with dilation of small bowel and a fair amount of fluid in the colon. The patient is having bowel movements and her nausea has resolved. She has not had much NG output. I have ordered an abdominal film to check the position of the NG tube and on my review of th at her NG tube appears to be in good position and the contrast from her CT scan has moved into the co dayna. I do not think she has a high grade obstruction and she may have some form of enteritis given t he fluid filled colon and the fact that she is still having bowel movements. Given her history of mu ltiple bowel obstructions and surgeries, I do think that a period of bowel rest is recommended and we are going to continue with NG decompression and bowel rest for now. She can have her oral medicatio ns and clamp the NG tube as long she does not become nauseated again. If she symptomatically improve d or stable, then we will likely obtain a small bowel follow through in 24-48 hours and advance her d iet if no residual significant obstruction is seen. Given her history of Clostridium difficile, I ag ree with holding off on antibiotics until there is a clear indication. She has a urine culture pendi ng and since I do not see any pericolonic inflammatory changes. I do not feel that antibiotics are e mpirically indicated for colitis. Thank you very much.
[2017-10-18] MEDS ORDERED: Levothyroxine Sodium 112 MCG TAB PO SCH (06:00)
[2017-10-18] MEDS ORDERED: Levothyroxine Sodium 25 MCG TAB PO SCH (06:00)
[2017-10-18 06:13] LABS: #Eosinphils 0.1 thou/uL (0.0-0.7); #Lymphocytes 1.9 thou/uL (1.20-3.40); #Monocytes 0.5 thou/uL (0.11-0.59); #Neutrophils 3.4 thou/uL (1.40-6.50); %Basophils 0.6 % (0.0-1.0); %Eosinophils 1.7 % (0.0-10.0); %Lymphocytes 31.2 % (21.0-51.0); %Monocytes 9.1 % (0.0-10.0); %Neutrophils 57.4 % (42.0-75.0); Hemoglobin 12.2 g/dL (12.0-16.0); Mean Corpuscular HGB CONC 32.8 g/dL (32.0-36.0); Mean Corpuscular Hemoglobin 29.7 pg (27.0-31.0); Mean Corpuscular Volume 90.4 fL (78.0-98.0); Platelet Count 262 thou/uL (130-400); RBC Distribution Width 11.7 % (11.5-14.5); Red Blood Cell (RBC) Count 4.12 mill/uL (4.20-5.40)
[2017-10-18 06:17] LABS: INR-International Normal Ratio 1.5; Prothrombin Time 18.2 SEC (12.0-14.7)
[2017-10-18 06:48] LABS: ALT (SGPT) 13 U/L (8-55); AST (SGOT) 12 U/L (5-34); Albumin 3.4 g/dL (3.5-5.0); Alkaline Phosphatase 53 U/L (40-150); Anion Gap 8 mmol/L (10-20); BUN (Urea Nitrogen) 8 mg/dL (9.8-20.1); Bilirubin, Total 0.9 mg/dL (0.2-1.2); Calc. Creatinine Clearance 64 mL/min (70-130); Carbon Dioxide 27 mmol/L (22-29); Chloride 108 mmol/L (98-107); Estimated GFR-MDRD 56; Globulin 2.3 g/dL (2.4-3.5); Glucose 101 mg/dL (70-105); Protein, Total 5.7 g/dL (6.0-8.3); Sodium 139 mmol/L (136-145)
[2017-10-18] MEDS: Lactinex Tablet PO SCH (08:55)
--- NOTE | 2017-10-18 10:31 | PRG ---
DATE OF SERVICE: 10/18/2017 SUBJECTIVE: The patient is feeling significantly better. Dr. Skinner was able to remove the NG tube this morning. She is tolerating a clear liquid diet right now. She has less pain. She is passing g as. Denies diarrhea at this time. Denies fevers or chills. Denies nausea and vomiting. OBJECTIVE: VITAL SIGNS: Temperature 98.4, pulse of 55, respirations 14, blood pressure 121/76, pulse ox is 99% on room air. GENERAL: She is awake and alert, in no acute distress. HEENT: Mucosa is moist. NECK: Supple. HEART: Regular rate and rhythm. LUNGS: Clear. ABDOMEN: With decreased bowel sounds, but soft, nontender, nondistended. LABORATORY DATA: White blood cell count down to 6.0, hemoglobin and hematocrit 12.2 and 37.2, platel ets are 262. She has a normal differential. INR of 1.5. Sodium 139, potassium 4.0, chloride 108, C O2 of 27, BUN and creatinine 8 and 1.03, serum glucose of 101, albumin of 3.4. Urine culture growing a 2 gram negative rods, but likely colonized due to her history of ileostomy, awaiting organization and sensitivity. ASSESSMENT AND PLAN: 1. This is a 51-year-old female patient with a history of multiple small bowel obstructions, a compl ex past surgical history. She was admitted with a possible small-bowel obstruction. She does have a history of recurrent partial small-bowel obstructions. She is clinically improving and tolerating t he removal of her NG tube. Further plan per surgery. Discontinue the NG tube for now, giving a tria l of clear liquids. She seems to be doing well at this time. 2. History of recurrent urinary tract infection with a urostomy bag, awaiting culture and sensitivit y. We will likely continue to keep her off antibiotics unless she becomes symptomatic for a urinary tract infection. 3. History of Clostridium difficile, no signs of profuse diarrhea at this time. We will check stool cultures if this develops. 4. DISPOSITION: Hopefully home soon if she continues to tolerate a diet with close follow up with Rey Lyn due to her history of recurrent colitis. 5. Hypercoagulable state, on Coumadin. We will have Pharmacy adjust the dosage of her Coumadin.
--- NOTE | 2017-10-18 11:47 | PRG ---
DATE OF SERVICE: 10/18/2017 SUBJECTIVE: This is a 51-year-old female being followed by Dr. Vazquez for a partial small-bowel obstruction. There were no acute overnight events. The patient reports passing gas this a.m. NG tube had minimal output and has been clamped for the last 2 hours. There is no further nausea or vomiting. OBJECTIVE: VITAL SIGNS: Temperature 98.4, pulse 55, respiration 14, O2 sat 99% on room air , blood pressure 121/76. GENERAL: Resting in bed in no acute distress. NG tube is in place and clamped. PULMONARY: Normal work of breathing. Symmetric rise. CARDIOVASCULAR: Regular rate and rhythm. GASTROINTESTINAL: Soft, nontender, nondistended. MUSCULOSKELETAL: Moves all extremities x4. NEUROLOGIC: No focal deficit noted. LABORATORY DATA: WBC 6.0, hemoglobin 12.2, hematocrit 37.2, platelet count 262. Sodium 139, potassium 4.0, chloride 108, carbon dioxide 27, BUN 8, creatinine 1.03, glucose 101. Microbiology positive for gram negative jayme in urine. ASSESSMENT: 1. Partial small-bowel obstruction. 2. Nausea, vomiting and abdominal pain, likely secondary to above. 3. GNR UTI PLAN: Discontinue NG tube at this time. We will start the patient on clear liquid diet. Advance diet as tolerated. Encourage mobility. The patient may be saline locked now. Antibiotics per primary team. The patient was seen and evaluated with Dr. Skinner. NANDA
[2017-10-18] MEDS ORDERED: Warfarin Sodium 5 MG TAB PO SCH (17:00)
--- NOTE | 2017-10-18 18:21 | PRG ---
DATE OF SERVICE: 10/18/2017 Isidra Hernadez is a patient well known to me. She is on chronic Coumadin. She has had multiple opera tions, ileal conduit and has had problems related to radiation therapy for cervical cancer. I have s een her on numerous occasions for bowel obstructions. I have performed operations in the past. She is admitted again on this occasion. Dr. Vazquez saw her in my absence. The patient is now passing b owel movements. Her NG tube was removed. She is ready for regular diet. Her abdomen is soft and no ntender. At this point, I will advance her diet and she more likely will be discharged home tomorrow .
[2017-10-18] MEDS: Citalopram 20 MG TAB PO SCH (20:20)
[2017-10-18] MEDS ORDERED: Magnesium Oxide 250 MG TAB PO SCH (21:00)
[2017-10-19 06:01] LABS: ALT (SGPT) 11 U/L (8-55); AST (SGOT) 11 U/L (5-34); Albumin 3.6 g/dL (3.5-5.0); Alkaline Phosphatase 51 U/L (40-150); Anion Gap 10 mmol/L (10-20); BUN (Urea Nitrogen) 6 mg/dL (9.8-20.1); Bilirubin, Total 0.7 mg/dL (0.2-1.2); Calc. Creatinine Clearance 70 mL/min (70-130); Calcium 9.4 mg/dL (7.8-10.44); Carbon Dioxide 27 mmol/L (22-29); Chloride 107 mmol/L (98-107); Estimated GFR-MDRD 63; Globulin 2.4 g/dL (2.4-3.5); Glucose 94 mg/dL (70-105); Potassium 3.9 mmol/L (3.5-5.1); Sodium 140 mmol/L (136-145)
[2017-10-19 06:18] LABS: INR-International Normal Ratio 1.7; Prothrombin Time 19.6 SEC (12.0-14.7)
[2017-10-19] MEDS ORDERED: Budesonide 0.25 MG/2 ML NEB ONE (07:50)
[2017-10-19] MEDS: Lactinex Tablet PO SCH (08:06)
--- NOTE | 2017-10-19 14:58 | PRG ---
DATE OF SERVICE: 10/19/2017 SUBJECTIVE: Isidra Hernadez is doing well. She has tolerated diet. She is ready for discharge. She is having multiple bowel movements. She does not have any abdominal pain. PHYSICAL EXAMINATION: LUNGS: Clear to auscultation. CARDIAC: Regular rate and rhythm. No murmur or gallop. ABDOMEN: Soft, nontender, nondistended. VITAL SIGNS: 97 degrees, 73, 112/69. ASSESSMENT AND PLAN: Resolved partial bowel obstruction. Discharge home today. Dr. Castillo is out today on a family emergency and I told him that I will discharge her for him.
[2017-10-19 16:00] VITALS: BP 109/63; TEMP 98.2
[2017-10-19] MEDS ORDERED: Warfarin Sodium 7.5 MG TAB PO SCH (17:00)
--- NOTE | 2017-10-19 21:01 | DIS ---
DATE OF ADMISSION: 10/17/2017 DATE OF DISCHARGE: 10/19/2017 DISCHARGE DIAGNOSES: Abdominal pain with partial bowel obstruction possibly due to peritoneal adhesi ons. PROCEDURES DURING THIS HOSPITALIZATION: IV fluid hydration and observation. OTHER DIAGNOSES: Hypercoagulable state, protein-S deficiency, on Coumadin, hypothyroidism, medically treated, history of urinary conduit, history of cervical cancer and hysterectomy, radiation and chem otherapy, history of ureteral fistula, history of Clostridium difficile colitis, history of cerebral thrombosis as well as pulmonary embolism on chronic anticoagulation. HISTORY: A 51-year-old female who is admitted to Dr. Castillo for complaints of abdominal pain. CAT scan suggested a bowel obstruction, NG tube left in place for 24-36 hours, then removed as sh is pas sing flatus and bowel movements. By this time, she is tolerating regular diet and having bowel movem ents. She is discharged home to resume her home medications and follow up with Dr. Castillo as vanessa arreaga
[2017-10-20] MEDS ORDERED: Levothyroxine Sodium 75 MCG TAB PO SCH (06:00)
== END 2017-10-19 16:10 | disposition home or self-care (01) | DRG 389 ==
LOC: ERS 01:06 → SURG A 09:12
PROVIDERS: ADMIT Family Medicine; ATTEND Family Medicine
DX: K56.51 Intestinal adhesions [bands], with partial obstruction (principal); D68.59 Other primary thrombophilia; N39.0 Urinary tract infection, site not specified; E03.9 Hypothyroidism, unspecified; B96.89 Other specified bacterial agents as the cause of diseases classified elsewhere; Z86.711 Personal history of pulmonary embolism; Z79.01 Long term (current) use of anticoagulants; Z85.41 Personal history of malignant neoplasm of cervix uteri; Z90.710 Acquired absence of both cervix and uterus; Z92.3 Personal history of irradiation; Z92.21 Personal history of antineoplastic chemotherapy; Z88.1 Allergy status to other antibiotic agents
CPT/HCPCS: 36415; 74019; 74177; 80053; 81003; 81015; 83690; 84436; 84439; 84443; 85025; 85610; 87077; 87086; 87186; 96361; 96365; C9113; J0131; J2543; J7050; J7626

== ENCOUNTER 2017-12-11 19:04 | Emergency (ER) | payer SELFPAY ==
[~2017-12-11 19:04] MED LIST: ISOVUE-370 76%-LOCM 1 ML ONE; Iopamidol 370 76% 50 ML VIAL FS ONE
[2017-12-11] MEDS ORDERED: Ondansetron ODT 4 MG TAB ONE (19:26)
[2017-12-11 19:57] LABS: #Basophils 0.1 thou/uL (0.0-0.2); #Eosinphils 0.1 thou/uL (0.0-0.7); #Lymphocytes 1.8 thou/uL (1.20-3.40); #Monocytes 0.8 thou/uL (0.11-0.59); #Neutrophils 9.7 thou/uL (1.40-6.50); %Basophils 0.6 % (0.0-1.0); %Eosinophils 0.4 % (0.0-10.0); %Lymphocytes 14.8 % (21.0-51.0); %Monocytes 6.2 % (0.0-10.0); Hemoglobin 16.3 g/dL (12.0-16.0); Mean Corpuscular HGB CONC 33.5 g/dL (32.0-36.0); Mean Corpuscular Hemoglobin 29.5 pg (27.0-31.0); Mean Corpuscular Volume 87.9 fL (78.0-98.0); Platelet Count 347 thou/uL (130-400); RBC Distribution Width 11.6 % (11.5-14.5); Red Blood Cell (RBC) Count 5.55 mill/uL (4.20-5.40); White Blood Cell (WBC) Count 12.4 thou/uL (4.8-10.8)
[2017-12-11 20:18] LABS: ALT (SGPT) 21 U/L (8-55); AST (SGOT) 22 U/L (5-34); Albumin 4.7 g/dL (3.5-5.0); Alkaline Phosphatase 82 U/L (40-150); Anion Gap 17 mmol/L (10-20); BUN (Urea Nitrogen) 17 mg/dL (9.8-20.1); Bilirubin, Total 1.9 mg/dL (0.2-1.2); Calc. Creatinine Clearance 0 mL/min (70-130); Calcium 11.3 mg/dL (7.8-10.44); Carbon Dioxide 28 mmol/L (22-29); Chloride 100 mmol/L (98-107); Estimated GFR-MDRD 43; Globulin 4.1 g/dL (2.4-3.5); Glucose 111 mg/dL (70-105); Lipase 22 U/L (8-78); Potassium 4.8 mmol/L (3.5-5.1); Protein, Total 8.8 g/dL (6.0-8.3); Sodium 140 mmol/L (136-145)
--- NOTE | 2017-12-11 20:26 | RAD ---
ABDOMEN ONE VIEW: HISTORY: Abdominal pain. COMPARISON: Abdomen radiograph from 10/17/2017. FINDINGS: A right lower quadrant ostomy is present. There are multiple surgical sutures over the abdomen. Darcie luation for free air is limited without an upright examination. There are multiple surgical clips in the pelvis. Moderate degenerative lower facet changes. No significant residual contrast is seen within the bowel . Single distended loop of small bowel in the left upper quadrant. IMPRESSION: No evidence for bowel obstruction. POS: HOME
[2017-12-11 20:27] LABS: INR-International Normal Ratio 1.4; Prothrombin Time 17.1 SEC (12.0-14.7)
[2017-12-11 21:41] LABS: Bilirubin Negative (Negative); Blood, Urine Trace (Negative); Clarity CLOUDY (Clear); Glucose, Urine (Dipstick) Negative (Negative); Leukocyte Small (Negative); Nitrite Positive (Negative); Protein, Urine (Dipstick) 30 mg/dL (Neg-Trace); Specific Gravity, Urine 1.014 (1.002-1.036); Urobilinogen 0.2 mg/dL (0.2-1.0)
[2017-12-11 21:44] LABS: Bacteria/HPF 4+ HPF (None Seen); Squamous Epithelial 0-3 HPF (0-3); WBC/HPF 21-50 HPF (0-3)
[2017-12-11 21:45] LABS: Pathc Cast-AUWi Flag 5.42 (0-2.49)
[2017-12-11 21:56] LABS: Hyaline Casts/LPF 0-3 HYALINE CAST LPF (0-3 Hyaline)
--- NOTE | 2017-12-11 22:28 | CT ---
CT ABDOMEN AND PELVIS WITH IV AND ORAL CONTRAST: HISTORY: Abdominal pain. COMPARISON: 10/17/2017 FINDINGS: The lung bases are clear. The gallbladder is surgically absent. A urostomy in the right lower quadr ant is again demonstrated. There are resultant postoperative changes of the bowel. Contrast distend ed loops of bowel throughout the abdomen are evident. Contrast has extended into the left colon. Th ere are degenerative changes of the lumbar spine. IMPRESSION: 1. Extensive postoperative changes. 2. No evidence of bowel obstruction. POS: [facility]
== END 2017-12-11 22:49 | disposition home or self-care (01) ==
LOC: ERS 19:04
DX: K52.9 Noninfective gastroenteritis and colitis, unspecified (principal); E03.9 Hypothyroidism, unspecified; Z86.73 Personal history of transient ischemic attack (TIA), and cerebral infarction without residual deficits; F32.9 Major depressive disorder, single episode, unspecified; Z87.891 Personal history of nicotine dependence; Z79.899 Other long term (current) drug therapy; Z79.01 Long term (current) use of anticoagulants
CPT/HCPCS: 36415; 74018; 74177; 80053; 81003; 81015; 83690; 85025; 85610; 96360; 96361; Q0162

== ENCOUNTER 2018-01-18 17:37 | Inpatient (IN) | payer SELFPAY ==
[2018-01-18] MEDS ORDERED: Ondansetron HCl/PF 4 MG/2 ML Vial ONE (18:48)
[2018-01-18] MEDS ORDERED: Morphine 4 MG/ML VIAL ONE ×2 (18:48→21:27)
[2018-01-18 19:02] LABS: #Basophils 0.1 thou/uL (0.0-0.2); #Eosinphils 0.1 thou/uL (0.0-0.7); #Lymphocytes 3.2 thou/uL (1.20-3.40); #Monocytes 0.7 thou/uL (0.11-0.59); #Neutrophils 9.1 thou/uL (1.40-6.50); %Basophils 0.4 % (0.0-1.0); %Eosinophils 0.5 % (0.0-10.0); %Lymphocytes 24.5 % (21.0-51.0); %Monocytes 5.5 % (0.0-10.0); %Neutrophils 69.2 % (42.0-75.0); Hemoglobin 14.8 g/dL (12.0-16.0); Mean Corpuscular HGB CONC 33.2 g/dL (32.0-36.0); Mean Corpuscular Hemoglobin 29.7 pg (27.0-31.0); Mean Corpuscular Volume 89.6 fL (78.0-98.0); Mean Platelet Volume 6.7 fL (7.4-10.4); Platelet Count 366 thou/uL (130-400); Red Blood Cell (RBC) Count 4.97 mill/uL (4.20-5.40); White Blood Cell (WBC) Count 13.2 thou/uL (4.8-10.8)
[2018-01-18 19:24] LABS: ALT (SGPT) 15 U/L (8-55); AST (SGOT) 20 U/L (5-34); Albumin 4.2 g/dL (3.5-5.0); Alkaline Phosphatase 58 U/L (40-150); Anion Gap 17 mmol/L (10-20); BUN (Urea Nitrogen) 16 mg/dL (9.8-20.1); Bilirubin, Total 0.6 mg/dL (0.2-1.2); Calc. Creatinine Clearance 0 mL/min (70-130); Calcium 10.1 mg/dL (7.8-10.44); Carbon Dioxide 19 mmol/L (22-29); Chloride 103 mmol/L (98-107); Estimated GFR-MDRD 47; Globulin 3.4 g/dL (2.4-3.5); Glucose 95 mg/dL (70-105); Lipase 20 U/L (8-78); Protein, Total 7.6 g/dL (6.0-8.3); Sodium 135 mmol/L (136-145)
[2018-01-18 19:28] LABS: CKMB 1.4 ng/mL (0-6.6); Troponin I Less than 0.010 ng/mL (< 0.028)
--- NOTE | 2018-01-18 20:49 | CT ---
CONTRAST ENHANCED ABDOMEN AND PELVIC CT 01/18/18 COMPARISON: 12/11/17 FINDINGS: There is diffuse dilatation of fluid filled and partially contrast opacified small bowel. There is hy perdense mural prominence of the small bowel which may relate to hyperemia. Surrounding fat stranding of the intra-abdominal fat is present notably at the lower abdomen. There is a right lower quadrant ostomy with underlying anastomotic suture material. This does represent the region of transition of bowel caliber. No disseminated free air. No portal vein gas. Evidence of prior cholecystectomy. There is mild to moderate dilatation of the right renal collecting system. The right kidney is ventrally m alrotated. No obvious urolithiasis. The urinary bladder is decompressed. There is scattered vascular calcification. Otherwise, no additional significant interval change. IMPRESSION: 1. Findings indicating a mechanical bowel obstruction with point of transition at the right lowe r quadrant about site of anastomotic suture which underlies right lower quadrant ostomy. Recommend strickland rgical consultation. 2. Mild to moderate prominence of the right renal collecting system. The right kidney is malrota otf. No discrete urolithiasis. Followup with renal ultrasound may prove useful. POS: ISIAH
[2018-01-18] MEDS ORDERED: Lidocaine 4% Topical Sol 50 ML BOT ONE (22:10)
[2018-01-18] MEDS ORDERED: Benzocaine 20% Spray 60 ML CAN ONE (22:10)
[2018-01-18] MEDS: Sodium Chloride 0.9% 1,000 ML IV SCH (23:30)
[2018-01-19 00:50] VITALS: BMI 22.9
[2018-01-19] MEDS ORDERED: Acetaminophen 1,000 MG in Premix Bag 1 BAG IVPB PRN ×2 (06:36→13:00)
[2018-01-19] MEDS: Sodium Chloride 0.9% 1,000 ML IV SCH ×3 (07:39→17:00)
[2018-01-19] MEDS ORDERED: Ketorolac Tromethamine 30 MG/ML VIAL IVP PRN (07:41)
[2018-01-19 08:19] LABS: #Eosinphils 0.1 thou/uL (0.0-0.7); #Monocytes 0.6 thou/uL (0.11-0.59); #Neutrophils 4.1 thou/uL (1.40-6.50); %Basophils 0.4 % (0.0-1.0); %Eosinophils 0.9 % (0.0-10.0); %Lymphocytes 17.4 % (21.0-51.0); %Monocytes 10.4 % (0.0-10.0); %Neutrophils 70.8 % (42.0-75.0); Hemoglobin 12.7 g/dL (12.0-16.0); INR-International Normal Ratio 1.2; Mean Corpuscular HGB CONC 31.8 g/dL (32.0-36.0); Mean Corpuscular Hemoglobin 28.7 pg (27.0-31.0); Mean Corpuscular Volume 90.3 fL (78.0-98.0); Mean Platelet Volume 6.7 fL (7.4-10.4); Platelet Count 267 thou/uL (130-400); Prothrombin Time 14.9 SEC (12.0-14.7); RBC Distribution Width 12.2 % (11.5-14.5); Red Blood Cell (RBC) Count 4.42 mill/uL (4.20-5.40); White Blood Cell (WBC) Count 5.8 thou/uL (4.8-10.8)
[2018-01-19 08:31] LABS: Anion Gap 8 mmol/L (10-20); BUN (Urea Nitrogen) 14 mg/dL (9.8-20.1); Calc. Creatinine Clearance 64 mL/min (70-130); Calcium 8.6 mg/dL (7.8-10.44); Carbon Dioxide 27 mmol/L (22-29); Chloride 108 mmol/L (98-107); Estimated GFR-MDRD 57; Glucose 89 mg/dL (70-105); Potassium 4.2 mmol/L (3.5-5.1); Sodium 139 mmol/L (136-145)
[2018-01-19] MEDS ORDERED: Pantoprazole 40 MG VIAL IVP SCH ×2 (09:00)
[2018-01-19] MEDS ORDERED: Enoxaparin Sodium 40 MG/0.4 ML SYRINGE SC SCH (09:00)
[2018-01-19 11:47] VITALS: TEMP 98.3
--- NOTE | 2018-01-19 15:40 | RAD ---
SMALL BOWEL STUDY: 01/19/18 HISTORY: Small bowel obstruction. COMPARISON: CT abdomen and pelvis on 01/18/18. FINDINGS: [employer] view of the abdomen demonstrates a nasogastric tube in place coiled over the left upper quadran t with tip overlying the expected location of the gastric fundus. Surgical clips overlie the right up per quadrant with multiple surgical clips overlying the pelvis. Radiopaque suture material is seen wi thin the right lower quadrant as well as in the left mid abdomen. There is residual contrast seen thr oughout the colon. Minimal contrast is seen within small bowel loops. A few gaseous distended small b owel loops are present. Small bowel study demonstrates mild dilatation of loops of small bowel, but contrast extends to the r egion of the gastric pouch on the 30 minute image with contrast seen in the remaining colon with anas tomosis in the right upper quadrant by the two hour image. A four hour and 20 minute delayed image wa s obtained with small amount of residual contrast in the loops of small bowel and the majority of the contrast is seen throughout the colon extending to the level of the rectum. Delayed imaging also dem onstrates contrast within the left renal collecting system and ureter. IMPRESSION: Findings likely related to low grade partial small bowel obstruction. Contrast is seen within the reg ion of the right lower quadrant ostomy by 30 minutes with contrast seen in the colon on the two hour image, and delayed images demonstrate contrast seen throughout the entire colon to the level of the r ectum. POS: ISIAH
[2018-01-19 20:40] VITALS: BP 147/73
--- NOTE | 2018-01-19 23:19 | HP ---
HISTORY OF PRESENT ILLNESS: This patient is well known to me. I saw her earlier this year for bowel obstruction that resolved nonoperatively. She presents with abdominal pain, nausea, abdominal diste ntion. This is her fourth hospitalization this year. CAT scan obtained in the emergency room reveal ed changes consistent with a possible bowel obstruction. NG tube was placed. She does not have that much of her NG tube overnight. A small bowel follow through was ordered this morning that was sarai l, transition into the colon within 2 hours. The contrast from the CAT scan the night before had art michael reached the colon. The patient has had normal with numerous bowel movements. Patient in the pas t has had a laparoscopic cholecystectomy in 2010. In 2011, she had high-grade bowel obstruction due to adhesions requiring diagnostic laparoscopy converted to laparotomy with 6 inch segment of small lorenza wel terminal ileum resected with primary anastomosis. 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 They resolved nonoperatively. On 04/12/2012, she developed anot her bowel obstruction requiring laparotomy, right hemicolectomy, segmental bowel resection, [place] anastomosis, abdominal washout. In the past, patient has had bilateral tubal ligation, total ab dominal hysterectomy, bilateral salpingo-oophorectomy. In 2005, she had chemoradiation therapy for c ervical cancer. The patient has had numerous ureteral stents placed and removed. Dr. Lyn has seen her for fecal transplant for recurrent C. diff colitis. Dr. Lyn wants to perform another colonosc opy on her in the future. 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 At the time of that operation felt that she did not need a colostomy, concerned about her fixed sigmoid colon difficult colonoscopies. By the time I am seeing her, she is feeling much better. Abdomen is without pain. Small bowel follo w through was normal. NG tube was removed and diet advanced. She may be able to be discharged home tonight. ALLERGIES: LEVAQUIN. TOBACCO: None. ALCOHOL: None. PAST MEDICAL HISTORY: Cerebral thrombosis, history of pulmonary embolism on chronic anticoagulation and protein C deficiency. PAST SURGICAL HISTORY: Extensive as above. MEDICATIONS: Coumadin, levothyroxine, lactobacillus, furosemide, cholecalciferol. REVIEW OF SYSTEMS: Ten point review of systems noncontributory. History of cardiac catheterization did not reveal any coronary artery disease. PHYSICAL EXAMINATION: VITAL SIGNS: 5 feet and 5, 138 pounds, 23 BMI, 98.3 degrees, 54, 144/79. HEAD, EYES, EARS, NOSE, AND THROAT: Unremarkable. LUNGS: Clear to auscultation. CARDIAC: Regular rate and rhythm without murmur. ABDOMEN: Soft, nontender. NG tube in place, removed. EXTREMITIES: Unremarkable. LABORATORY DATA: White count 5.8, hemoglobin 12.7. PT 14.9, INR 1.2. Basic metabolic profile unrem arkable. ASSESSMENT AND PLAN: Small-bowel obstruction, resolved nonoperatively. Plan advance diet and possib le discharge home tomorrow.
[2018-01-20] MEDS ORDERED: Levothyroxine Sodium 25 MCG TAB PO SCH (06:00)
[2018-01-20] MEDS ORDERED: Levothyroxine Sodium 112 MCG TAB PO SCH (06:00)
[2018-01-20] MEDS ORDERED: Citalopram 10 MG TAB PO SCH (09:00)
[2018-01-20] MEDS ORDERED: Non-Formulary Item 1 EACH (Levothyroxine Sodium [Levothyroxine Sodium] 137 MCG) PO SCH (09:00)
[2018-01-20] MEDS ORDERED: Magnesium Oxide 250 MG TAB PO SCH (09:00)
[2018-01-20] MEDS ORDERED: RHAMNOSUS GG PO SCH (09:00)
[2018-01-20] MEDS ORDERED: INULIN PO SCH (09:00)
[2018-01-20] MEDS ORDERED: Warfarin Sodium 7.5 MG TAB PO SCH (09:00)
--- NOTE | 2018-01-20 18:09 | EKG ---
Test Reason : Blood Pressure : / mmHG Vent. Rate : 044 BPM Atrial Rate : 026 BPM P-R Int : 000 ms QRS Dur : 090 ms QT Int : 508 ms P-R-T Axes : 000 073 057 degrees QTc Int : 434 ms Junctional bradycardia Abnormal ECG Confirmed by CLEVELAND RICE D.O. ([id number]), science editor ANDERSON FRANCO ([id number]) on 01/20/2018 6:09:14 PM Referred By: Confirmed By:CLEVELAND RICE D.O.
== END 2018-01-19 20:55 | disposition home or self-care (01) | DRG 389 ==
LOC: ERS 17:37 → SURG A 23:52
PROVIDERS: ADMIT Specialist; ATTEND Specialist
DX: K56.609 Unspecified intestinal obstruction, unspecified as to partial versus complete obstruction (principal); I42.9 Cardiomyopathy, unspecified; E03.9 Hypothyroidism, unspecified
CPT/HCPCS: 36415; 74019; 74177; 74250; 80048; 80053; 82553; 83690; 84484; 85025; 85610; 86850; 86900; 86901; 93005; 94760; 96361; 96374; 96375; 96376; A4216; C9113; J0131; J1650; J1885; J2001; J2270; J2405

== ENCOUNTER 2018-01-29 17:00 | Outpatient (CLI) | payer SELFPAY | END 2018-01-29 17:01 | disposition home or self-care (01) | LOC: SLEEPLAB 17:00 | PROVIDERS: ATTEND Family Medicine | DX: G47.33 Obstructive sleep apnea (adult) (pediatric) (principal); I10 Essential (primary) hypertension | CPT/HCPCS: 95806 ==

== ENCOUNTER 2018-03-05 21:53 | Inpatient (IN) | payer SELFPAY ==
[~2018-03-05 21:53] MED LIST changes: -Iopamidol 370 76% 50 ML VIAL FS ONE
[2018-03-05 22:30] LABS: #Basophils 0.1 thou/uL (0.0-0.2); #Eosinphils 0.1 thou/uL (0.0-0.7); #Lymphocytes 2.1 thou/uL (1.20-3.40); #Monocytes 0.6 thou/uL (0.11-0.59); %Basophils 0.8 % (0.0-1.0); %Eosinophils 0.8 % (0.0-10.0); %Lymphocytes 23.9 % (21.0-51.0); %Monocytes 7.3 % (0.0-10.0); %Neutrophils 67.3 % (42.0-75.0); Hemoglobin 14.4 g/dL (12.0-16.0); Mean Corpuscular HGB CONC 33.2 g/dL (32.0-36.0); Mean Corpuscular Volume 87.4 fL (78.0-98.0); Mean Platelet Volume 6.9 fL (7.4-10.4); Platelet Count 307 thou/uL (130-400); Red Blood Cell (RBC) Count 4.97 mill/uL (4.20-5.40); White Blood Cell (WBC) Count 8.9 thou/uL (4.8-10.8)
[2018-03-05 22:47] LABS: ALT (SGPT) 18 U/L (8-55); AST (SGOT) 24 U/L (5-34); Albumin 4.2 g/dL (3.5-5.0); Alkaline Phosphatase 53 U/L (40-150); Anion Gap 14 mmol/L (10-20); BUN (Urea Nitrogen) 19 mg/dL (9.8-20.1); Bilirubin, Total 0.7 mg/dL (0.2-1.2); Calc. Creatinine Clearance 0 mL/min (70-130); Calcium 9.9 mg/dL (7.8-10.44); Carbon Dioxide 20 mmol/L (22-29); Chloride 106 mmol/L (98-107); Estimated GFR-MDRD 54; Globulin 3.1 g/dL (2.4-3.5); Glucose 90 mg/dL (70-105); Lipase 15 U/L (8-78); Potassium 3.7 mmol/L (3.5-5.1); Protein, Total 7.3 g/dL (6.0-8.3); Sodium 136 mmol/L (136-145)
--- NOTE | 2018-03-05 23:11 | CT ---
CT ABDOMEN AND PELVIS WITH CONTRAST: Technique: Multiple contiguous axial images were obtained through the abdomen and pelvis with IV enha ncement. Indications: Abdominal pain. History of small bowel obstruction. Comparison: 01-18-18 FINDINGS: Lung bases clear. The liver, spleen, pancreas unremarkable. Post cholecystectomy change. There is a right ostomy. The patient appears to be post right colectomy. There are fluid filled dilated loops of small bowel in the left abdomen and midabdomen. There is a segment of luminal narrowing in the distal small bowel which appears to represent the site of obstruction. In the coronal plane, this area of luminal narrowing extends over approximately 5 cm length. No free fluid. Kidneys unremarkable. No other interval change. IMPRESSION: Fluid filled dilated loops of small bowel. There is a segment of luminal narrowing in the distal smal l bowel which is apparently the site of obstruction as described above. POS: ISIAH
[2018-03-05] MEDS ORDERED: Lidocaine Viscous Sol 2% 15 ml UD Cup ONE (23:15)
[2018-03-05] MEDS ORDERED: Oxymetazoline HCl 0.05% ( 15 ML ) ONE (23:15)
[2018-03-05] MEDS ORDERED: Morphine 2 MG/ML SYRINGE ONE (23:34)
[2018-03-06 00:08] LABS: Clarity Hazy (Clear); Specific Gravity, Urine 1.014 (1.002-1.036)
[2018-03-06 00:12] LABS: Glucose, Urine (Dipstick) Negative (Negative); Leukocyte Moderate (Negative); Nitrite Positive (Negative); Protein, Urine (Dipstick) Negative (Neg-Trace)
[2018-03-06 00:13] LABS: Bilirubin Negative (Negative); Urobilinogen 0.2 mg/dL (0.2-1.0)
[2018-03-06 00:17] LABS: Bacteria/HPF 4+ HPF (None Seen); Blood, Urine Trace (Negative); Hyaline Casts/LPF NONE SEEN LPF (0-3 Hyaline); RBC/HPF 0-3 HPF (0-3); Renal Epithelial 0-3 HPF (0-3); Squamous Epithelial 0-3 HPF (0-3); Transitional Epithelial NONE SEEN HPF (0-3)
[2018-03-06] MEDS: Lactated Ringer's 1,000 ML IV SCH ×2 (01:36→08:48)
[2018-03-06 02:19] VITALS: BMI 22.4
[2018-03-06] MEDS ORDERED: Ketorolac Tromethamine 30 MG/ML VIAL IVP PRN (02:43)
[2018-03-06] MEDS ORDERED: Acetaminophen 1,000 MG in Premix Bag 1 BAG IVPB PRN (02:44)
[2018-03-06] MEDS ORDERED: Morphine 2 MG/ML SYRINGE SLOW IVP PRN (02:44)
[2018-03-06] MEDS ORDERED: Morphine 4 MG/ML VIAL IV PRN (02:45)
--- NOTE | 2018-03-06 09:09 | RAD ---
ABDOMEN ONE VIEW: History: Abdominal pain. Comparison: 01-19-18 Correlation: CT 03-05-18 FINDINGS: There has been placement of a nasogastric tube, the distal tip directed into the distal stomach. Ther e is excreted contrast into the left and right intrarenal collecting system. There is contrast noted in the ileoconduit in the right lower quadrant. Bowel gas pattern is nonspecific. IMPRESSION: 1. Nasogastric tube. 2. Ileoconduit with contrast in bilateral intrarenal systems. There appears to be a component of mild right sided hydronephrosis. POS: [facility]
--- NOTE | 2018-03-06 10:03 | RAD ---
ACUTE ABDOMEN SERIES UPRIGHT CHEST AND TWO VIEWS ABDOMEN: Indication: Small bowel obstruction, abdominal pain, follow up. FINDINGS: There is an enteric catheter which traverses to the right mid abdomen. The lungs are clear. There is no free air visualized. There are distended loops of bowel with a few differential air fluid levels. There is an anastomotic suture line seen overlying the abdomen bilaterally, as well as metallic clips in the abdomen and pelvis. IMPRESSION: Residual distended bowel with a few differential air fluid levels. Orogastric tube is in place. POS: ISIAH
[2018-03-06 10:04] LABS: INR-International Normal Ratio 2.6; Prothrombin Time 27.7 SEC (12.0-14.7)
--- NOTE | 2018-03-06 10:08 | HP ---
HISTORY OF PRESENT ILLNESS: Isidra Hernadez is a 52-year-old female who was just hospitalized r ecently from 01/18/2018 to 01/19/2018 for a partial bowel obstruction. At that time she presented wi th abdominal pain, distention. CAT scan of abdomen and pelvis suggesting a small-bowel obstruction. She underwent a small bowel follow through the same day and had contrast traversed into her colon wi thin 30 minutes. She on delayed films had residual contrast and some small bowel loops with small ai r fluid levels. She was discharged home and has done well, although she states that daily she cannot eat more than 2 meals a day and she feels bloated and cramps. She on this occasion had a particular ly severe episode yesterday with abdominal distention. She underwent a CAT scan of the abdomen and p yari on admission 03/05/2018 demonstrating what appears to be a 5 cm small bowel narrowing luminal n ear the terminal ileum. She had an NG tube placed that was documented on morning x-rays to be in the duodenum, well placed with minimal output. By this morning she has had a bowel movement, passed fla tus and her abdomen is not distended. ALLERGIES: QUINOLONES. TOBACCO: None. ALCOHOL: None. PAST MEDICAL HISTORY: Cerebral thrombosis, history of pulmonary embolism on chronic anticoagulation with a protein S deficiency. PAST SURGICAL HISTORY: Laparoscopic cholecystectomy in 2010, 2011 high-grade bowel obstruction due t o adhesions were a diagnostic laparoscopy converted to laparotomy with 6 inch segment of small bowel terminal ileum resected with primary anastomosis. 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 In the past she has had bilateral tubal ligation, total abdominal hysterectomy, jerzy ateral salpingo-oophorectomy. 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 In 2012 the patient underwent colonic conduit for ileal conduit for chronic ureteral obstru ctions. MEDICATIONS: Celexa, magnesium, levothyroxine, Coumadin. PHYSICAL EXAMINATION: VITAL SIGNS: NG tube in place with minimal drainage, 97.7 degrees, 57, 122/72, 5 foot 5, 135 pounds, 22 BMI. HEENT: Unremarkable. LUNGS: Clear to auscultation. CARDIAC: Regular rate and rhythm without murmur or gallop. ABDOMEN: Soft, nondistended. Minimal tympany. Midline scar from previous surgeries well-healed. I romeo conduit, right lower quadrant. Bag in place. EXTREMITIES: Unremarkable. ASSESSMENT AND PLAN: 1. Partial bowel obstruction with CAT scan demonstrating a 5 cm luminal narrowing segment of distal small bowel. She clinically has history of a partial bowel obstruction. I doubt that she has intest inal ischemia. I would recommend removing her NG tube, a diet trial as she is passing flatus and sto ol. She had a small bowel through 4 weeks ago and I have discussed with her options of obtaining thi s, but she has declined and I agree it is probably not necessary. If tolerates her diet today she co uld be discharged home. She is at risk for having to have an operation in the future if she continue s to have chronic pain, postprandial and signs of a bowel obstruction, she may need an operation. fady has had numerous operations and risk abdomen discussed with her. She is moving to [place] in e next few weeks and hopes to avoid an operation at this time. 2. Chronic hypercoagulable state on Coumadin check her PT/INR as it has not checked on this admissio n. 3. Anticipate discharge home later today, possibly.
[2018-03-06 11:51] VITALS: BP 111/72; TEMP 98.4
--- NOTE | 2018-03-06 20:56 | DIS ---
Ms. Hernadez is doing well today. Her NG tube has been removed. She is tolerating her diet. She has had a bowel movement. She wants to go home. PT/INR was checked today and it is 2.6 INR, PT 27.7. T he patient is not having nausea or vomiting. She will follow up with me as needed. She has moved in to [place] in the next few weeks.
--- NOTE | 2018-03-07 09:44 | DIS ---
DATE OF ADMISSION: 03/05/2018 DATE OF DISCHARGE: 03/06/2018 DISCHARGE DIAGNOSES: Partial bowel obstruction with a 5-cm segment of small bowel seen on CAT scan t o have luminal narrowing. The patient has postprandial abdominal pain and only is able to eat twice a day. She has extensive surgical history. Please see history and physical. She does not desire an operation and she is having bowel movements, passing gas. Her NG tube had minimal output and it was removed. She tolerated her diet. She will be discharged home with follow up in my office as davi katz.
== END 2018-03-06 15:46 | disposition home or self-care (01) | DRG 389 ==
LOC: ERS 21:53 → SURG A 03-06 01:06
PROVIDERS: ADMIT Specialist; ATTEND Specialist
DX: K56.600 Partial intestinal obstruction, unspecified as to cause (principal); D68.59 Other primary thrombophilia; Z79.01 Long term (current) use of anticoagulants
CPT/HCPCS: 36415; 74018; 74022; 74177; 80053; 81003; 81015; 83690; 85025; 85610; J0131; J2270